=== PATIENT | female | born 1975 | race Caucasian/White ===

== ENCOUNTER 2020-11-27 09:27 | Outpatient (REF) | payer MEDICARE, MEDICAID, SELFPAY | END 2020-11-27 09:28 | disposition home or self-care (01) | LOC: HO.LAB 09:27 | PROVIDERS: Visit Provider Internal Medicine | DX: Z20.822 Contact with and (suspected) exposure to COVID-19 (principal) | CPT/HCPCS: 36415; C9803; U0003; U0005 ==

== ENCOUNTER 2021-02-10 08:22 | Outpatient (REF) | payer MEDICARE, MEDICAID, SELFPAY ==
[2021-02-10 09:20] LABS: Glucose Urine UA NEG (NEG); Leukocyte Esterase Urine TRACE (NEG); Nitrite Urine NEG (NEG); PH 7.5 (5.0-8.0); Urine Blood NEG (NEG); Urine Ketones NEG (NEG); Urine Protein NEG (NEG-TRACE)
[2021-02-10 09:21] LABS: Appearance Urine HAZY; Color Urine YELLOW
[2021-02-10 09:32] LABS: Bacteria Urine 1+ /LPF; RBC Urine 0 /HPF (0); Squamous Epithelial Cell Urine 3+ /LPF
[2021-02-10 09:47] LABS: MANUAL DIFF FLAG NO
[2021-02-10 10:03] LABS: Basophils Percent Auto 0.5 % (0-2); Eosinophils Absolute Auto 0.1 X10*3/uL (0.0-0.4); Eosinophils Percent Auto 0.7 % (0-4); Hematocrit 43.5 % (37-47); Hemoglobin 14.7 g/dl (12.0-16.0); Imm Gran Abs Auto 0.02 X10*3/uL (0.00-0.03); Imm Gran Pct Auto 0.2 % (0.0-0.4); Immature Retic Fraction 6.8 % (3.0-15.9); Lymphocytes Percent Auto 37.2 % (20-40); Mean Corpuscular HGB Conc 33.8 g/dl (31.0-35.0); Mean Corpuscular Hemoglobin 27.5 pg (27.0-33.0); Mean Corpuscular Volume 81.3 fL (80-98); Mean Platelet Volume 10.7 fL (9.4-12.3); Monocytes Absolute Auto 0.6 X10*3/uL (0.1-1.2); Monocytes Percent Auto 7.8 % (2-11); Neutrophils Absolute Auto 4.3 X10*3/uL (2.0-8.3); Neutrophils Percent Auto 53.6 % (45-73); Platelet Count 242 X10*3/uL (160-400); Red Blood Count 5.35 X10*6/uL (4.20-5.50); Red Cell Distribution Width 11.9 % (11.0-16.0); Retic HGB Equivalent 32.2 pg (30.0-35.0); Reticulocyte Percent 1.2 % (0.5-1.8); Reticulocytes Absolute 0.063 X10*6/uL (0.026-0.095); White Blood Count 8.1 X10*3/uL (4.8-10.8)
[2021-02-10 10:10] LABS: Alanine Aminotransferase 23 U/L (0-31); Albumin Level 4.6 g/dL (3.5-5.0); Alkaline Phosphatase 112 U/L (39-117); Anion Gap 14 (12-20); Aspartate Amino Transferase 26 U/L (5-31); Bilirubin Total 0.7 mg/dL (0.0-1.0); Blood Urea Nitrogen 21 mg/dL (9-16); Calcium 9.5 mg/dL (8.4-10.2); Carbon Dioxide 26 mmol/L (22-29); Chloride 101 mmol/L (96-108); Cholesterol 229 mg/dL; Estimated Glomerular Filt Rate 54; Glucose Random 61 mg/dL (60-115); HDL Cholesterol 43 mg/dL; Iron 91 mcg/dL (30-160); LDL Cholesterol Calculated 154 mg/dl; Percent Iron Saturation 19 % (15-50); Potassium 4.1 mmol/L (3.3-5.1); Sodium 137 mmol/L (135-145); Total Iron Binding Capacity 486 mcg/dL (228-428); Total Protein 7.6 g/dL (6.5-8.0); Triglycerides 164 mg/dL; Unsaturated Iron Binding 395 ug/dL
[2021-02-10 10:28] LABS: HBc Num1 0.07 S/CO (0.00-0.79); HIV AB/AG Nonreactive (Nonreactive); HIV Num 1 0.09 S/CO (0.00-0.99); Hepatitis B Core Antibody Nonreactive (Nonreactive); ~HepC Num1 0.04 S/CO (0.00-0.79); ~Hepatitis C Antibody Nonreactive (Nonreactive)
[2021-02-10 10:31] LABS: Ferritin 12 ng/mL (10-250); Free T4 (Free Thyroxine) 0.92 ng/dL (0.71-1.85); HBS Num1 0.43 mIU/mL (0-7.99); HBsAGNum1 0.38 S/CO (0.00-0.99); Hepatitis B Surface Antigen Negative (Negative); Thyroid Stimulating Hormone 1.77 uIU/mL (0.32-4.0); Vitamin D 25-OH Total 24.9 ng/mL (>30); ~Hepatitis B Surface Antibody NONREACTIVE (Nonreactive)
[2021-02-10 10:33] LABS: Syphilis Screen Nonreactive (Nonreactive)
[2021-02-10 11:03] LABS: CT PCR NOT DETECTED (Not Detect.); NG PCR NOT DETECTED (Not Detect.)
[2021-02-10 11:23] LABS: Folate 11.1 ng/mL (> or = 4.0); Vitamin B12 266 pg/mL (200-900)
== END 2021-02-10 08:23 | disposition home or self-care (01) ==
LOC: HO.LAB 08:22
PROVIDERS: PCP Internal Medicine; Visit Provider Internal Medicine
DX: E78.00 Pure hypercholesterolemia, unspecified (principal); F41.9 Anxiety disorder, unspecified; R94.5 Abnormal results of liver function studies; R30.0 Dysuria
CPT/HCPCS: 80053; 80061; 81001; 82306; 82607; 82728; 82746; 83540; 84439; 84443; 85025; 85045; 86704; 86706; 86780; 86803; 87340; 87389; 87491; 87591

== ENCOUNTER 2021-08-31 15:46 | Outpatient (REF) | payer MEDICARE, MEDICAID, SELFPAY ==
[2021-08-31 15:56] LABS: MANUAL DIFF FLAG NO
[2021-08-31 17:04] LABS: Basophils Percent Auto 0.5 % (0-2); Eosinophils Absolute Auto 0.1 X10*3/uL (0.0-0.4); Eosinophils Percent Auto 0.8 % (0-4); Hematocrit 40.8 % (37.0-47.0); Hemoglobin 13.3 g/dl (12.0-16.0); Imm Gran Abs Auto 0.04 X10*3/uL (0.00-0.03); Imm Gran Pct Auto 0.5 % (0.0-0.4); Lymphocytes Absolute Auto 2.2 X10*3/uL (1.2-4.9); Lymphocytes Percent Auto 26.4 % (20-40); Mean Corpuscular HGB Conc 32.6 g/dl (31.0-35.0); Mean Corpuscular Hemoglobin 27.1 pg (27.0-33.0); Mean Corpuscular Volume 83.1 fL (80.0-98.0); Mean Platelet Volume 10.7 fL (9.4-12.3); Monocytes Absolute Auto 0.7 X10*3/uL (0.1-1.2); Neutrophils Absolute Auto 5.3 x10*3/uL (2.0-8.3); Neutrophils Percent Auto 63.8 % (45-73); Platelet Count 249 X10*3/uL (160-400); Red Blood Count 4.91 X10*6/uL (4.20-5.50); Red Cell Distribution Width 12.1 % (11.0-16.0); Retic HGB Equivalent 30.5 pg (30.0-35.0); Reticulocyte Percent 1.7 % (0.5-1.8); Reticulocytes Absolute 0.082 X10*6/uL (0.026-0.095); White Blood Count 8.3 X10*3/uL (4.8-10.8)
[2021-08-31 17:34] LABS: Alanine Aminotransferase 54 U/L (0-31); Albumin Level 4.4 g/dL (3.5-5.0); Alkaline Phosphatase 94 U/L (39-117); Anion Gap 17 (12-20); Aspartate Amino Transferase 58 U/L (5-31); Bilirubin Total 0.6 mg/dL (0.0-1.0); Blood Urea Nitrogen 15 mg/dL (9-16); Calcium 9.6 mg/dL (8.4-10.2); Carbon Dioxide 23 mmol/L (22-29); Chloride 103 mmol/L (96-108); Cholesterol 242 mg/dL; Estimated Glomerular Filt Rate 52; Glucose Random 87 mg/dL (60-115); HDL Cholesterol 39 mg/dL; Iron 105 mcg/dL (30-160); LDL Cholesterol Calculated 154 mg/dl; Percent Iron Saturation 20 % (15-50); Potassium 4.4 mmol/L (3.3-5.1); Sodium 139 mmol/L (135-145); Total Iron Binding Capacity 516 mcg/dL (228-428); Total Protein 7.4 g/dL (6.5-8.0); Triglycerides 248 mg/dL; Unsaturated Iron Binding 411 ug/dL
[2021-08-31 17:58] LABS: Vitamin D 25-OH Total 38.9 ng/mL (>30)
[2021-08-31 18:09] LABS: Folate > 20.0 ng/mL (> or = 4.0); Vitamin B12 > 2000 pg/mL (200-900)
[2021-08-31 18:15] LABS: Ferritin 14 ng/mL (10-250)
== END 2021-08-31 15:47 | disposition home or self-care (01) ==
LOC: HO.LAB 15:46
PROVIDERS: PCP Internal Medicine; Visit Provider Internal Medicine
DX: E53.8 Deficiency of other specified B group vitamins (principal); E55.9 Vitamin D deficiency, unspecified; E78.00 Pure hypercholesterolemia, unspecified
CPT/HCPCS: 36415; 80053; 80061; 82306; 82607; 82728; 82746; 83540; 85025; 85045

== ENCOUNTER 2021-12-21 10:34 | Outpatient (REF) | payer MEDICARE, MEDICAID, SELFPAY ==
[2021-12-21 12:40] LABS: Erythrocyte Sedimentation Rate 7 MM/HR (0-20)
[2021-12-21 13:28] LABS: Rheumatoid Factor < 15.0 IU/mL (<15.0)
[2021-12-22 08:36] LABS: Lyme Abs Screen <0.90 index
[2021-12-22 17:37] LABS: IgA 234 mg/dL (47-310); IgG 816 mg/dL (600-1640); IgM 102 mg/dL (50-300)
[2021-12-22 23:12] LABS: Anti Nuclear Antibody Screen POSITIVE (NEGATIVE)
== END 2021-12-21 10:35 | disposition home or self-care (01) ==
LOC: HO.LAB 10:34
PROVIDERS: PCP Internal Medicine; Visit Provider Psychiatry & Neurology Neurology
DX: M54.9 Dorsalgia, unspecified (principal)
CPT/HCPCS: 36415; 82550; 82784; 85652; 86038; 86039; 86334; 86431; 86617; 86618

== ENCOUNTER 2022-04-08 15:58 | Outpatient (REF) | payer MEDICARE, MEDICAID, SELFPAY ==
--- NOTE | ~2022-04-08 | US_ITS ---
EXAMINATION: US SOFT TISSUE, NONVASCULAR CLINICAL INFORMATION: R22.2 - Localized swelling, mass and lump, trunk. COMPARISON: CT abdomen and pelvis noncontrast 07/25/2014. TECHNIQUE: Real-time linear imaging of the left paralumbar soft tissues is targeted to the area of patient concern. Grayscale imaging and color Doppler are performed. FINDINGS: The submitted images demonstrate curvilinear specular echo 2 cm in diameter in area of palpable concern. There is strong posterior acoustic shadowing suggesting calcified or osseous structure. There is no associated color flow. Other images submitted suggest mild edema are in the superficial soft tissues. Findings are nonspecific. Further assessment with CT or MRI would be helpful to further characterize the area of palpable concern. US/US extremity nonvascular IMPRESSION: -2 cm diameter specular echo with strong posterior shadowing near area of patient concern, possibly calcified or osseous mass. Mild edema or superficial soft tissues. -Findings are nonspecific. Suggest further assessment with CT or MR to further characterize area of palpable concern.
== END 2022-04-08 15:59 | disposition home or self-care (01) ==
LOC: HO.US 15:58
PROVIDERS: Visit Provider Internal Medicine
DX: R22.2 Localized swelling, mass and lump, trunk (principal)
CPT/HCPCS: 76882

== ENCOUNTER 2022-05-05 10:02 | Outpatient (REF) | payer MEDICARE, MEDICAID, SELFPAY ==
--- NOTE | ~2022-05-05 | CT_ITS ---
EXAMINATION: CT LUMBAR SPINE CLINICAL INFORMATION: Left posterior back/buttock's swelling, mass. COMPARISON: Soft tissue ultrasound dated 04/08/[address] abdomen/pelvis dated 07/25/2014. TECHNIQUE: Contiguous axial CT images of the lumbar spine were obtained following the intravenous administration of 100 mL Omnipaque 350 contrast. Sagittal and coronal reformats were provided and reviewed. This CT examination was performed using dose optimization techniques as appropriate, variously including the following: *Automated exposure control *Adjustment of mA and/or kV according to patient size (this includes techniques or standardized protocols for targeted exams where dose is matched to indication/reason for exam; i.e. extremities or head) *Use of iterative reconstruction technique DLP: 1284 mGy-cm FINDINGS: Normal vertebral body alignment. The lumbar lordosis is maintained. No acute fracture or subluxation. No loss of vertebral body height. Minimal loss of intervertebral disc height with endplate osteophytes at L3-L4. Prominent multilevel bilateral facet arthropathy. No concerning lytic or blastic osseous lesion. There is dorsal subcutaneous stranding superior to the posterior aspect of the iliac bones, left greater than right. On the left, there is a somewhat ovoid, heterogeneous collection within the subcutaneous tissues measuring approximately 5.1 x 4.2 x 5.3 cm (AP x ML x CC). No definite encapsulation. Findings are nonspecific and could represent an evolving soft tissue hematoma versus phlegmonous change. Mild overlying skin thickening. No soft tissue ulceration. No large, enhancing soft tissue mass. The visualized paraspinal soft tissues are otherwise unremarkable. Broad based disc bulges with thickening of the ligamentum flavum and bilateral facet arthropathy at L3-S1 causing multilevel central canal and bilateral neural foraminal stenosis. Evaluation of disc bulges and stenosis is limited on CT examination. CT/CT lumbar spine w con IMPRESSION: 1. Dorsal subcutaneous stranding superior to the iliac bones, left greater than right. Left-sided heterogeneous collection measuring approximately 5.1 x 4.2 x 5.3 cm without clear encapsulation. Findings are nonspecific and could represent an evolving soft tissue hematoma versus phlegmonous change. Mild overlying skin thickening without definite ulceration. 2. Disc bulges with bilateral facet arthropathy causing central canal and bilateral neural foraminal stenosis at L3-S1. Evaluation of disc bulges and stenosis limited on CT examination. 3. No acute fracture or subluxation.
== END 2022-05-05 10:03 | disposition home or self-care (01) ==
LOC: HO.CT 10:02
PROVIDERS: PCP Internal Medicine; Visit Provider Internal Medicine
DX: R22.2 Localized swelling, mass and lump, trunk (principal)
CPT/HCPCS: 72132

== ENCOUNTER 2022-07-08 15:55 | Outpatient (REF) | payer MEDICARE, MEDICAID, SELFPAY ==
--- NOTE | ~2022-07-08 | MM_ITS ---
EXAMINATION: MM SCREENING DIGITAL BREAST TOMOSYNTHESIS, BILATERAL CLINICAL INFORMATION: Screening. Asymptomatic. The lifetime risk of breast cancer based on the Tyrer-Cuzick Model is 12%. COMPARISON: Mammography: 03/08/2019 (baseline) TECHNIQUE: Digital breast tomosynthesis is performed in both the craniocaudal and mediolateral oblique views along with computer-aided detection (CAD). Synthesized 2D images are generated from the tomosynthesis. FINDINGS: The breasts are almost entirely fatty (ACR BI-RADS breast composition Category a). There are no significant masses, abnormal calcifications, or other abnormalities. Background stromal markings are normal. Small oval fatty nodule with central benign coarse calcification posterior upper outer right breast is stable. The axilla and skin contours are unremarkable. MM/MM tomosynthesis screening BI IMPRESSION: No mammographic evidence of malignancy. ASSESSMENT: BI-RADS 2: Benign RECOMMENDATION: Routine annual mammography screening. This patient's information was entered into a reminder system with a target due date for their next mammogram.
== END 2022-07-08 15:56 | disposition home or self-care (01) ==
LOC: HO.MAMMO 15:55
PROVIDERS: PCP Internal Medicine; Visit Provider Internal Medicine
DX: Z12.31 Encounter for screening mammogram for malignant neoplasm of breast (principal)
CPT/HCPCS: 77063; 77067

== ENCOUNTER 2023-06-01 15:56 | Outpatient (AMB) | payer MEDICARE, MEDICAID, SELFPAY ==
[2023-06-01 16:20] VITALS: BP 126/88; PULSE 92; O2SAT 97; BMI 45.4
--- NOTE | 2023-06-01 16:20 | MHC.PC.OV ---
Vital Signs 06/01/23 16:20 Height 5 ft 6 in Weight 281 lb 8.485 oz BMI 45.4 BP 126/88 Blood Pressure Location Lt brachial Position Sitting Pulse 92 Pulse Source Pulse Oximeter Pulse Oximetry (%) 97 Oxygen Delivery Method Room Air Intake Visit Reasons: lower back pain Remote Pilot Operator Required: No Accompanied by: Self / Same As Patient Allergies codeine [CODEINE] Allergy (Unknown, Verified 06/01/23 16:21) PALPITATIONS,SHAKY Medication List - Last Reconciled 06/01/23 by Sindy Beach MD albuterol sulfate 90 mcg/actuation (ProAir HFA) 2 puffs inhalation Q6H PRN alprazolam 2 mg PO TID 30 days ascorbic acid (vitamin C) 500 mg PO DAILY [BED PADS As directed] [BEDSIDE COMMODE As directed] blood sugar diagnostic (FreeStyle Lite Strips) As directed check the BS QD blood-glucose meter (FreeStyle Lite Meter kit) As directed capsaicin 0.025% (Capsicum) 1 patch topical TID PRN cholecalciferol (vitamin D3) 50 mcg PO DAILY clotrimazole 1% 1 appl topical BID 30 days cyanocobalamin (vitamin B-12) 1,000 mcg PO DAILY cyclobenzaprine 10 mg PO TID PRN 30 days duloxetine (Cymbalta) 60 mg PO DAILY 90 days ferrous sulfate 325 mg PO DAILY fluconazole (Diflucan) 150 mg PO ONCE 1 day fluconazole 150 mg PO ONCE gabapentin 600 mg PO TID [Heavy duty shower bench with BACK As directed] lancets (FreeStyle Lancets) As directed check BS QD lisinopril 5 mg PO DAILY methylprednisolone mg PO nabumetone 500 mg PO BID [PADS for her underwear As directed] prednisone 4 tabs QD x 2 days then 3 tabs QD x 2 days then 2 tabs Qd x 2 days then 1 tab QD x 2 days PO daily; tramadol 50 mg PO Q6-8H PRN 30 days triamcinolone acetonide 0.5% 1 appl topical BID 7 days [WALKER with SEAT As directed] Tobacco use date assessed: 06/01/23 Dental Screening Dental Screen Date: 06/01/23 Did you have a dental visit in the last 12 months?: Yes Did you have a dental problem in the last 6 months where you did not have access to dental care?: No Was dental information given to patient?: Patient has dentist HPI lower back pain HPI Details 47-year-old morbidly obese female with hypercholesterolemia GERD generalized anxiety disorder lumbar degenerative disc disease osteoarthritis left knee coming in for follow-up. Last seen in December 2022. Mammogram is due next month. bilateral knee pain PAin management- seen 9 months ago injection but has not helped. PAtient has seen ortho and was told nothing to do- right now. using capsaicin patches, biofreeze which is nto helping. complains of pain [facility] Medical History (Updated 06/01/23 @ 17:12 by Sindy Beach MD) Anemia Dysuria Fibromyalgia GERD (gastroesophageal reflux disease) History of kidney stones Hypercholesterolemia Obesity Vitamin D deficiency Surgical History H/O gastric bypass History of left knee surgery History of tonsillectomy Family History Father Myocardial infarction CVD (cardiovascular disease) Hypertension Mother Lung cancer Diabetes Social History (Updated 01/15/21 @ 16:21 by Tami Reynolds [facility]) Housing: Apartment Alcohol intake: current Alcohol intake frequency: a few times a month Patient Tobacco Use Status: Never used Tobacco e-Cigarette/Vaping Use: Never Used Second Hand Smoke Exposure: No Current occupational status: unemployed Cognitive needs: No Hearing needs: No Vision needs: No Questionnaire PHQ-9 Over the last 2 weeks, how often have you been bothered by any of the following problems? 1. Little interest or pleasure in doing things: several days 2. Feeling down, depressed, or hopeless: several days 3. Trouble falling or staying asleep, or sleeping too much: not at all 4. Feeling tired or having little energy: not at all 5. Poor appetite or overeating: not at all 6. Feeling bad about yourself - or that you are a failure or have let yourself or your family down: not at all 7. Trouble concentrating on things, such as reading the newspaper or watching television: not at all 8. Moving or speaking so slowly that other people could have noticed. Or the opposite - being so fidgety or restless that you have been moving around a lot more than usual: not at all 9. Thoughts that you would be better off or of hurting yourself in some way: not at all Total score: 2 Depression Screening Interpretation: Positive Source: Developed by Drs. Hamzah Schmid, Mely Lee, Silvio Marr and colleagues, with an educational abril from [employer]. Thrive Questionnaire Date Thrive assessed: 06/01/23 I am a: Patient What is your living situation today?: I have a steady place to live Within the past 12 months, did the food you bought not last and you didn't have the money to get more?: Never true Within the past 12 months, did you worry whether your food would run out before you got money to buy more?: Never true Do you have trouble paying for medicines?: No Do you have trouble getting transportation to medical appointments?: No Do you have trouble paying your heating and electricity bill?: No Do you have trouble taking care of your child, family member or friend?: No Do you have trouble with day-to-day activities such as bathing, preparing meals, shopping, managing finances, etc.?: No Are you currently unemployed and looking for a job?: No Are you interested in more education?: No Please select the resources that you would like help with: None Currently or been in a relationship where the following occur: no concerns reported AUDIT C Alcohol Use Questionnaire (AUDIT-C) 1. How often do you have a drink containing alcohol?: Monthly or less 2. How many drinks containing alcohol do you have on a typical day when you are drinking?: 1 or 2 3. How often do you have six or more drinks on one occasion?: Never Total Score: 1 KATHY-7 AMB Questionnaire KATHY-7 Date KATHY - 7 assessed: 06/01/23 Feeling nervous, anxious, or on edge: 1 = Several days Not being able to stop or control worryin = Not at all Worrying too much about different things: 0 = Not at all Trouble relaxin = Not at all Being so restless that it is hard to sit still: 0 = Not at all Becoming easily annoyed or irritable: 0 = Not at all Feeling afraid as if something awful might happen: 0 = Not at all Total KATHY-7 score (0-4 normal; 5-9 mild; 10-14 moderate; 15-21 severe): 1 Source: Developed by Drs. Hamzah Schmid, Mely Lee, Silvio Marr and colleagues, with an educational abril from [employer]. Physical exam (Primary Care) Vital Signs: Last Vital Signs Pulse 92 06/01/23 16:20 BP 126/88 06/01/23 16:20 Pulse Ox 97 06/01/23 16:20 Oxygen Delivery Method Room Air 06/01/23 16:20 BMI result Body Mass Index 45.4 Tobacco/Smoking Status: Tobacco use Status Tobacco use date assessed 06/01/23 06/01/23 16:32 Patient Tobacco Use Status Never used Tobacco 06/01/23 16:32 Tobacco use type 01/02/23 15:39 e-Cigarette/Vaping Use Never Used 06/01/23 16:32 PHQ-9: PHQ-9 Score PHQ-9: Total score 2 06/01/23 16:32 Depression Screening Interpretation: Positive Thrive Assessment: Date of Thrive Assessment Date Thrive assessed 06/01/23 06/01/23 16:32 Currently or been in a relationship where the following occur: no concerns reported Const General: alert; No acute distress Eyes Conjunctivae: conjunctivae normal Resp Auscultation: clear to auscultation bilaterally Cardio Rate: regular rate Rhythm: regular rhythm GI Inspection: Yes normal to inspection Extrem General: Yes normal to inspection and No edema Assessment and Plan Assessment & Plan (1) Hypertension: Code(s): I10 - Essential (primary) hypertension Plan: Continue with blood pressure medication. Decrease salt intake and exercise continue with lisinopril 5 mg once a day (2) Lumbar degenerative disc disease: Code(s): M51.36 - Other intervertebral disc degeneration, lumbar region Plan: Keep active noted weight loss (3) Generalized anxiety disorder: Code(s): F41.1 - Generalized anxiety disorder Plan: Continue with present medication (4) GERD (gastroesophageal reflux disease): Code(s): K21.9 - Gastro-esophageal reflux disease without esophagitis Qualifiers: Esophagitis presence: without esophagitis Qualified Code(s): K21.9 - Gastro-esophageal reflux disease without esophagitis Plan: Avoid the foods that causes that usually spicy foods, tomato products, juices, coffee, soda and foods that your sensitive to. After eating do not lie down, allow 3-4 hours before in lie down. And keep the head of bed above 30 degrees to avoid the acid from going up. (5) Obesity: Code(s): E66.9 - Obesity, unspecified Qualifiers: Obesity type: due to excess calories Obesity classification: adult class 3 (BMI >= 40) Serious obesity comorbidity presence: without serious comorbidity Body mass index: BMI 40.0-44.9 Qualified Code(s): E66.01 - Morbid (severe) obesity due to excess calories; Z68.41 - Body mass index [BMI]40.0-44.9, adult Plan: Diet and exercise continue (6) Hypercholesterolemia: Code(s): E78.00 - Pure hypercholesterolemia, unspecified Plan: Avoid fried foods, chicken skin, eggs, butter margarine, pastries and meat. Be it pork or beef they have a lot of cholesterol LDL goal of less than 130 and triglyceride of less than 150 (7) Bilateral primary osteoarthritis of knee: Code(s): M17.0 - Bilateral primary osteoarthritis of knee Orders: Orders Complete Blood Count Auto Diff Today E78.00 - Pure hypercholesterolemia, unspecified Free T4 (Free Thyroxine) Today E78.00 - Pure hypercholesterolemia, unspecified Thyroid Stimulating Hormone Today E78.00 - Pure hypercholesterolemia, unspecified Vitamin B12 and Folate Today E78.00 - Pure hypercholesterolemia, unspecified Lipid Panel Today E78.00 - Pure hypercholesterolemia, unspecified Medications: New prednisone 4 tabs QD x 2 days then 3 tabs QD x 2 days then 2 tabs Qd x 2 days then 1 tab QD x 2 days PO daily; 20 tabs 0RF J45.909 - Unspecified asthma, uncomplicated, M17.0 - Bilateral primary osteoarthritis of knee semaglutide for 4 weeks 0.25 mg (0.368 mL) subcut QWEEK 3 mL 0RF E66.01 - Morbid (severe) obesity due to excess calories, Z68.41 - Body mass index [BMI] 40.0-44.9, adult Changed From sertraline (Zoloft) 100 mg PO BID 180 tabs 1RF F41.9 - Anxiety disorder, unspecified To sertraline (Zoloft) 100 mg PO DAILY 90 days 90 tabs 1RF F41.9 - Anxiety disorder, unspecified Coding Level of Care Code Est Pt Level 4 (89086) Diagnoses Hypertension I10 Lumbar degenerative disc disease M51.36 Generalized anxiety disorder F41.1 GERD (gastroesophageal reflux disease) K21.9 Esophagitis presence: without esophagitis Obesity E66.01; Z68.41 Obesity type: due to excess calories Obesity classification: adult class 3 (BMI >= 40) Serious obesity comorbidity presence: without serious comorbidity Body mass index: BMI 40.0-44.9 Hypercholesterolemia E78.00 Bilateral primary osteoarthritis of knee M17.0
== END 2023-06-01 17:25 | disposition home or self-care (01) ==
PROVIDERS: PCP Internal Medicine; Visit Provider Internal Medicine
DX: I10 Essential (primary) hypertension (principal); K21.9 Gastro-esophageal reflux disease without esophagitis; E66.01 Morbid (severe) obesity due to excess calories; Z68.41 Body mass index [BMI] 40.0-44.9, adult; M51.36 Other intervertebral disc degeneration, lumbar region; F41.1 Generalized anxiety disorder; E78.00 Pure hypercholesterolemia, unspecified; M17.0 Bilateral primary osteoarthritis of knee
CPT/HCPCS: 99214

== ENCOUNTER 2023-07-18 14:18 | Outpatient (AMB) | payer MEDICARE, MEDICAID, SELFPAY ==
--- NOTE | 2023-07-18 14:51 | MHC.OFFVIS ---
Intake Intake Visit Reasons: Back pain Intake Note: pt here for back pain Inside Wirer Required: No Allergies codeine [CODEINE] Allergy (Unknown, Verified 06/01/23 16:21) PALPITATIONS,SHAKY PFSH Medical History (Updated 07/18/23 @ 15:10 by GILBERT Montemayor) Lumbar degenerative disc disease Dysuria GERD (gastroesophageal reflux disease) Obesity History of kidney stones Anemia Hypercholesterolemia Vitamin D deficiency Fibromyalgia Surgical History H/O gastric bypass History of left knee surgery History of tonsillectomy Family History Father Myocardial infarction CVD (cardiovascular disease) Hypertension Mother Lung cancer Diabetes Social History (Updated 01/15/21 @ 16:21 by Tami Reynolds [facility]) Housing: Apartment Alcohol intake: current Alcohol intake frequency: a few times a month Patient Tobacco Use Status: Never used Tobacco e-Cigarette/Vaping Use: Never Used Second Hand Smoke Exposure: No Current occupational status: unemployed Cognitive needs: No Hearing needs: No Vision needs: No Assessment & Plan Assessment & Plan (1) Lumbar degenerative disc disease: Code(s): M51.36 - Other intervertebral disc degeneration, lumbar region Plan Dear Dr Beach, Thank you for referring Mrs Saucedo to our office today. She is a 48-year-old female presents today for evaluation of a left-sided low back pain. She has had this now for well over a year. It began a long time ago, and at some point she had an MRI done at [facility] showing some swelling in the subcutaneous fat tissue and it was suspected it could be a hematoma. She tells me that there is a lump she can feel on her back. In terms of neurological symptoms, she does occasionally get some electricity the goes down her legs when she is doing stretching. It is hard to tell she has any claudicating symptoms because her left knee is in need of replacement and is very arthritic. She takes tramadol, patches over the skin, cyclobenzaprine, duloxetine and nabumetone. PMH: Osteoarthritis of the left knee, shortness of breath, hypertension, fibromyalgia, anxiety, vitamin B12 and vitamin-D deficiency, eczema, GERD, high cholesterol Social hx: She does not smoke Medications: Albuterol, alprazolam, vitamin-C, capsaicin topical patches, vitamin D3, cyclobenzaprine, Cymbalta, iron, fluconazole, gabapentin, lisinopril, nabumetone, Trulicity, tramadol Allergies: and codeine Physical exam: She is awake alert oriented, walks with a walker and the limb she has severe left knee pain with manipulation. Over the left sacroiliac region, I can feel a small palpable mobile lump which is soft and rubbery in nature. There are no skin changes or discolorations around this area. Overall gross motor strength is normal. Imaging review: She has a lumbar MRI done at [place] in 2021 showing the above-mentioned left-sided nonspecific edema in the fat tissue over the SI joint region. In addition to this she also has a slight spondylolisthesis at L3-4 with central canal stenosis. Impression: 48-year-old female presents for evaluation of low back pain over the soft tissue of the sacroiliac region were previous MRI has shown a nonspecific tissue edema suspicious for possible hematoma. The patient does have a small lump in this area, it is slightly tender. The MRI suggests it could be hematoma. I would find it unusual that hematoma would not have resolved at this point. I will get a new MRI to check up on this, as well as the lumbar stenosis seen on the MRI. She does have some feeling of pain and electrical sensation down her legs with stretching her back so I suspect this could be from that. We will see her back in a few weeks and review the MRI together. I will also get standing flexion-extension x-rays to check on her spondylolisthesis. Thank you for allowing us to care for your patient. The total time spent with this visit with this patient was 45 minutes reviewing history, physical exam, lumbar spine imaging review, and implementation of treatment plan or further diagnostic testing Chalo Khan MD,PhD [facility] Orders: Orders XR lumbar spine 4V min Today M51.36 - Other intervertebral disc degeneration, lumbar region MR lumbar spine wo con Today M48.062 - Spinal stenosis, lumbar region with neurogenic claudication Coding Level of Care Code New Pt Level 4 (58154) Diagnoses Lumbar degenerative disc disease M51.36
== END 2023-07-18 15:19 | disposition home or self-care (01) ==
PROVIDERS: PCP Internal Medicine; Referring Provider Internal Medicine; Visit Provider Physician Assistant
DX: M51.36 Other intervertebral disc degeneration, lumbar region (principal)
CPT/HCPCS: 99204

== ENCOUNTER 2023-07-18 14:18 | Outpatient (REF) | payer MEDICARE, MEDICAID, SELFPAY ==
--- NOTE | ~2023-07-18 | XR_ITS ---
EXAMINATION: XR LUMBOSACRAL SPINE WITH OBLIQUES CLINICAL INFORMATION: Pain in lumbar region COMPARISON: None available TECHNIQUE: AP, flexion and extension views and lateral views of the lumbar spine. Lateral view of the lumbosacral junction. FINDINGS: There is mild dextroscoliosis of lumbar spine. There is straightening of lumbar lordosis and narrowing of L3-L4, L4-L5 with grade 1 anterior listhesis of L3 over L4 and L4 over L5 there is no significant instability on flexion and extension views. Pedicles are preserved. Sacroiliac joints are maintained. Soft tissues are normal. XR/XR lumbar spine 4V min IMPRESSION: Degenerative changes with grade 1 anterolisthesis of L3 over L4 and L4 over L5.
== END 2023-07-18 14:19 | disposition home or self-care (01) ==
LOC: HO.HOSX 14:18
PROVIDERS: PCP Internal Medicine; Visit Provider Physician Assistant
DX: M51.36 Other intervertebral disc degeneration, lumbar region (principal)
CPT/HCPCS: 72110

== ENCOUNTER 2023-07-26 10:55 | Outpatient (AMB) | payer MEDICARE, MEDICAID, SELFPAY ==
--- NOTE | 2023-07-26 10:49 | MHC.PC.OV ---
Intake Visit Reasons: KATHY LBP (skin issue) Intake Note: Patient is here to follow up on skin issue (skin break out). Paper Hanger Required: No Housetrailer Servicer: Not Required per policy Accompanied by: Self / Same As Patient Allergies codeine [CODEINE] Allergy (Unknown, Verified 06/01/23 16:21) PALPITATIONS,SHAKY Tobacco use date assessed: 06/01/23 HPI KATHY LBP (skin issue) HPI Details 48-year-old morbidly obese female with generalized anxiety disorder hypertension GERD hypercholesterolemia last seen in May 2023. Patient is due for colonoscopy, mammogram. Patient has low back pain and has been referred to the neurosurgeon diagnosis of lumbar degenerative disc problem of the mass on the lower back had an MRI in 2021 showing left-sided nonspecific edema in the fat tissue over the SI joint in addition has spondylolisthesis L3-4 with central canal stenosis patient has been advised to get. Patient also has a note from the [facility] pain management October 2022 diagnosis of fibromyalgia and neuritis post genicular RFA pain. Patient is asking more med and long discussion on no more increase needed . complains of rash chest, arm, face, legs having discharge whitish PFSH Medical History (Updated 07/18/23 @ 15:10 by GILBERT Montemayor) Lumbar degenerative disc disease Dysuria GERD (gastroesophageal reflux disease) Obesity History of kidney stones Anemia Hypercholesterolemia Vitamin D deficiency Fibromyalgia Surgical History H/O gastric bypass History of left knee surgery History of tonsillectomy Family History Father Myocardial infarction CVD (cardiovascular disease) Hypertension Mother Lung cancer Diabetes Social History (Updated 01/15/21 @ 16:21 by Tami Reynolds CMA) Housing: Apartment Alcohol intake: current Alcohol intake frequency: a few times a month Patient Tobacco Use Status: Never used Tobacco e-Cigarette/Vaping Use: Never Used Second Hand Smoke Exposure: No Current occupational status: unemployed Cognitive needs: No Hearing needs: No Vision needs: No Questionnaire Thrive Questionnaire Date Thrive assessed: 06/01/23 KATHY-7 AMB Questionnaire KATHY-7 Date KATHY - 7 assessed: 06/01/23 Source: Developed by Drs. Hamzah Schmid, Mely Lee, Silvio Marr and colleagues, with an educational abril from [employer]. Physical exam (Primary Care) Tobacco/Smoking Status: Tobacco use Status Tobacco use date assessed 06/01/23 07/26/23 10:54 Patient Tobacco Use Status Never used Tobacco 07/26/23 10:54 Tobacco use type 01/02/23 15:39 e-Cigarette/Vaping Use Never Used 07/26/23 10:54 Thrive Assessment: Date of Thrive Assessment Date Thrive assessed 06/01/23 07/26/23 10:54 Telehealth Telehealth Location of provider rendering services: practice address Location of patient: address on file Patient Identification confirmed using: Name, : Yes Telehealth method: video Patient verbally consented to treatment: Yes Patient verbally consented to billing insurance company: Yes Patient informed of any privacy concerns related to visit: Yes Minutes spent on Phone/Video with Pt.: 25 Assessment and Plan Assessment & Plan (1) Obesity: Code(s): E66.9 - Obesity, unspecified Qualifiers: Body mass index: BMI 40.0-44.9 Obesity classification: adult class 3 (BMI >= 40) Obesity type: due to excess calories Serious obesity comorbidity presence: without serious comorbidity Qualified Code(s): E66.01 - Morbid (severe) obesity due to excess calories; Z68.41 - Body mass index [BMI]40.0-44.9, adult (2) Lumbar degenerative disc disease: Code(s): M51.36 - Other intervertebral disc degeneration, lumbar region Plan: MRI pending (3) Bilateral primary osteoarthritis of knee: Code(s): M17.0 - Bilateral primary osteoarthritis of knee Plan: do the best to loose weight (4) Eczema: Code(s): L30.9 - Dermatitis, unspecified Orders: Referrals Dermatology Referral L30.9 - Dermatitis, unspecified Medications: Refilled cyclobenzaprine 10 mg PO TID PRN 90 tabs 0RF muscle spasm 30 days G89.29 - Other chronic pain, M54.50 - Low back pain, unspecified Coding Level of Care Code Tele Est Pt Level 4 (75518) Diagnoses Class 3 severe obesity due to excess calories without serious comorbidity with body mass index (BMI) of 40.0 to 44.9 in adult E66.01; Z68.41 Body mass index: BMI 40.0-44.9 Obesity classification: adult class 3 (BMI >= 40) Obesity type: due to excess calories Serious obesity comorbidity presence: without serious comorbidity Lumbar degenerative disc disease M51.36 Bilateral primary osteoarthritis of knee M17.0 Eczema L30.9
== END 2023-07-26 12:33 | disposition home or self-care (01) ==
LOC: HO.HMGH 10:55
PROVIDERS: PCP Internal Medicine; Visit Provider Internal Medicine
DX: M51.36 Other intervertebral disc degeneration, lumbar region (principal); E66.01 Morbid (severe) obesity due to excess calories; Z68.41 Body mass index [BMI] 40.0-44.9, adult; M17.0 Bilateral primary osteoarthritis of knee; L30.9 Dermatitis, unspecified
CPT/HCPCS: 99214

== ENCOUNTER 2023-08-25 08:36 | Outpatient (AMB) | payer MEDICARE, MEDICAID, SELFPAY ==
--- NOTE | 2023-08-25 09:16 | MHC.OFFWIV ---
Intake Vital Signs 08/25/23 09:17 Height 5 ft 6 in Weight 126.779 kg BMI 45.1 BP 140/82 H Blood Pressure Location Lt brachial Position Sitting Pulse 99 Pulse Source Pulse Oximeter Temp 97.8 F Temp Source Temporal Artery Scan Pulse Oximetry (%) 96 Intake Visit Reasons: EST/pore infection on torso,arms&breast(lobby) Intake Note: pt is here for c/o rash all over arms, torso, breast Patient Tobacco Use Status: Never used Tobacco Allergies codeine [CODEINE] Allergy (Unknown, Verified 08/25/23 09:23) PALPITATIONS,SHAKY Do you need a note to return to daycare/school/sports/work: Yes HPI HPI Comments History of Present Illness Details 1000 48 year old female presents with rash to torso, upper extremities, face, rash started about a week and half ago, not improving despite clotrimazole/betamethasone cream. Patient is unsure exactly white is causing this rash, however it is worse in her breast region. Denies new laundry detergent, lotion, creams, pefumes, new meds. Reports it was slightly itchy not anymore PE - w/ maculopaular rash to torso, b/l breast, back and b/l UE. Concerns for contact dermatitis, allergic dermatitis versus folliculitis. Unlikely fungal rash. Unlikely necrotizing infection, SJS, ten ( no mucus membrane involvment) Plan- predisone high dose X 5 days and pcp follow up may benefit from derm referal. [facility] Medical History Lumbar degenerative disc disease Dysuria GERD (gastroesophageal reflux disease) Obesity History of kidney stones Anemia Hypercholesterolemia Vitamin D deficiency Fibromyalgia Surgical History H/O gastric bypass History of left knee surgery History of tonsillectomy Family History Father Myocardial infarction CVD (cardiovascular disease) Hypertension Mother Lung cancer Diabetes Social History Housing: Apartment Alcohol intake: current Alcohol intake frequency: a few times a month Patient Tobacco Use Status: Never used Tobacco e-Cigarette/Vaping Use: Never Used Second Hand Smoke Exposure: No Current occupational status: unemployed Cognitive needs: No Hearing needs: No Vision needs: No Review of Systems Const Details: Constitutional : No Weight loss, No Fever, No Chills, No Fatigue, No Malaise ENT/Mouth : No sore throat, No Rhinorrhea Eyes: No Eye Pain, No Swelling, No Redness Cardiovascular : No Chest Pain, No SOB, No Dyspnea on Exertion, No Orthopnea, No Edema, No Palpitations Respiratory : No Cough, No Sputum, No Wheezing Gastrointestinal : No Nausea, No Vomiting, No Diarrhea, No Constipation, No abdominal Pain, No Hematochezia, No Melena Genitourinary : No Dysuria, No Urinary Frequency, No Hematuria, Musculoskeletal : No joint pain, No Myalgias, No Joint Swelling Skin : No Skin Lesions, + rash Neuro : No Weakness, No Numbness, No Dizziness, No Headache Psych : No Anxiety/Panic, No Depression All other systems reviewed and are negative All systems reviewed & are unremarkable except as noted in HPI and below Physical Exam Vital Signs: Last Vital Signs Temp 97.8 F 08/25/23 09:17 Pulse 99 08/25/23 09:17 BP 140/82 H 08/25/23 09:17 Pulse Ox 96 08/25/23 09:17 BMI result Body Mass Index 45.1 vss Appearance: Alert.? Oriented X3.? No acute distress.? Head: Normocephalic, atraumatic, no step-offs or deformities Eyes: Pupils equal, round and reactive to light.? CVS: Normal heart rate and rhythm.? Pulses normal.? Respiratory: No respiratory distress.? Breath sounds normal.? Abdomen: Soft and nontender.? Skin: Skin warm and dry.? Normal skin color.? Normal skin turgor.?+ w/ maculopaular rash to torso, b/l breast, back and b/l UE. Extremities: No lower extremity edema.? No calf ttp. 5/5 strength to bilateral upper and lower extremities Back: No midline tenderness, no C-spine tenderness, full range of motion, no CVA tenderness bilaterally Neuro: Oriented X 3.? No motor deficit.? No sensory deficit. CN 2-12 intact Assessment & Plan Assessment & Plan (1) Contact dermatitis: Code(s): L25.9 - Unspecified contact dermatitis, unspecified cause Plan Take your medications as prescribed. If you were prescribed antibiotics today, it is important that you take your medication to their entirety, do not skip any doses, do not finish them early. Follow-up with your primary care provider this week. Return to the emergency department with new or worsening symptoms. Such as fevers, chills, chest pain, shortness of breath, nausea, vomiting, dizziness, headache, vision changes, lethargy In case of emergency call 911 Medications: New prednisone 60 mg (3 x 20 mg) PO DAILY 5 days 15 tabs 0RF hydrocortisone 1% (Anti-Itch (hydrocortisone)) 1 appl topical TID PRN 120 mL 0RF skin irritation Coding Level of Care Code Est Pt Level 3 (95077) Diagnoses Contact dermatitis L25.9
[2023-08-25 09:17] VITALS: BP 140/82; PULSE 99; TEMP 36.6; O2SAT 96; BMI 45.1
== END 2023-08-25 10:16 | disposition home or self-care (01) ==
PROVIDERS: PCP Internal Medicine; Visit Provider Physician Assistant
DX: L25.9 Unspecified contact dermatitis, unspecified cause (principal)
CPT/HCPCS: 99213

== ENCOUNTER 2023-09-12 08:45 | Outpatient (AMB) | payer MEDICARE, MEDICAID, SELFPAY ==
--- NOTE | 2023-09-12 09:20 | MHC.OFFWIV ---
Intake Vital Signs 09/12/23 09:21 Height 5 ft 6 in Weight 276 lb BMI 44.5 BP 130/82 Blood Pressure Location Rt brachial Position Sitting Pulse 114 H Pulse Source Pulse Oximeter Temp 97.8 F Temp Source Temporal Artery Scan Pulse Oximetry (%) 98 Oxygen Delivery Method Room Air Intake Visit Reasons: EST/skin rash all over body [phone] Intake Note: pt is here for c/o skin rash all over body, was treated with prednisone but did not help Patient Tobacco Use Status: Never used Tobacco Allergies codeine [CODEINE] Allergy (Unknown, Verified 09/17/23 15:06) PALPITATIONS,SHAKY Medication List - Last Reconciled 09/17/23 by Noe Vallejo MD albuterol sulfate 90 mcg/actuation (ProAir HFA) 2 puffs inhalation Q6H PRN alprazolam 2 mg PO TID 30 days ascorbic acid (vitamin C) 500 mg PO DAILY [BED PADS As directed] [BEDSIDE COMMODE As directed] blood sugar diagnostic (FreeStyle Lite Strips) As directed check the BS QD blood-glucose meter (FreeStyle Lite Meter kit) As directed capsaicin 0.025% (Capsicum) 1 patch topical TID PRN cephalexin 500 mg PO BID cholecalciferol (vitamin D3) 50 mcg PO DAILY clotrimazole-betamethasone 1-0.05 % 1 appl topical BID 2 weeks cyanocobalamin (vitamin B-12) 1,000 mcg PO DAILY cyclobenzaprine 10 mg PO TID PRN 30 days duloxetine (Cymbalta) 60 mg PO DAILY 90 days ferrous sulfate 325 mg PO DAILY gabapentin 600 mg PO TID [Heavy duty shower bench with BACK As directed] hydrocortisone 1% (Anti-Itch (hydrocortisone)) 1 appl topical TID PRN lancets (FreeStyle Lancets) As directed check BS QD lisinopril 5 mg PO DAILY nabumetone 500 mg PO BID [PADS for her underwear As directed] prednisone 10 mg PO DAILY sertraline (Zoloft) 100 mg PO DAILY 90 days tramadol 50 mg PO Q6-8H PRN 30 days triamcinolone acetonide 0.5% 1 appl topical BID 7 days [WALKER with SEAT As directed] HPI EST/skin rash all over body [phone] HPI Details 48-year-old presents to the office for a sick visit. She was seen last week for a rash. Patient was given prednisone and her symptoms did not fade away completely. Sx of itchiness recurred after she completed her prednisone prescription. [facility] Medical History Lumbar degenerative disc disease Dysuria GERD (gastroesophageal reflux disease) Obesity History of kidney stones Anemia Hypercholesterolemia Vitamin D deficiency Fibromyalgia Surgical History H/O gastric bypass History of left knee surgery History of tonsillectomy Family History Father Myocardial infarction CVD (cardiovascular disease) Hypertension Mother Lung cancer Diabetes Housing: Apartment Alcohol intake: current Alcohol intake frequency: a few times a month Patient Tobacco Use Status: Never used Tobacco e-Cigarette/Vaping Use: Never Used Second Hand Smoke Exposure: No Current occupational status: unemployed Cognitive needs: No Hearing needs: No Vision needs: No Physical Exam Vital Signs: Last Vital Signs Temp 97.8 F 09/12/23 09:21 Pulse 114 H 09/12/23 09:21 BP 130/82 09/12/23 09:21 Pulse Ox 98 09/12/23 09:21 Oxygen Delivery Method Room Air 09/12/23 09:21 BMI result Body Mass Index 44.5 Skin Other: Scattered, erythematous rash over the right and left forearm and over the abdomen. A few weeping lesions noted Assessment & Plan Assessment & Plan (1) Rash: Code(s): R21 - Rash and other nonspecific skin eruption Plan: Prednisone with a longer taper. Abx to treat super infection. If sx do not improve to follow up here. Medications: New cephalexin 500 mg PO BID 14 caps 0RF prednisone 6 pills by mouth day 1, 6 pills by mouth day 2, 5 pills by mouth day 3, 4 pills by mouth day 4, 3 pills by mouth day 5, 2 pills by mouth day 6, 1 pill by mouth day 7 and 1 pill by mouth day 8. 10 mg PO DAILY 28 tabs 0RF Coding Level of Care Code Est Pt Level 3 (00262) Diagnoses Rash R21
[2023-09-12 09:21] VITALS: BP 130/82; PULSE 114; TEMP 36.6; O2SAT 98; BMI 44.5
== END 2023-09-12 09:57 | disposition home or self-care (01) ==
PROVIDERS: PCP Internal Medicine; Visit Provider Internal Medicine
DX: R21 Rash and other nonspecific skin eruption (principal)
CPT/HCPCS: 99213

== ENCOUNTER 2023-09-18 08:47 | Outpatient (AMB) | payer MEDICARE, MEDICAID, SELFPAY ==
--- NOTE | 2023-09-18 10:02 | AM.OFFWIN_ITS ---
Intake Vital Signs 09/18/23 10:03 Height 5 ft 6 in Weight 277 lb BMI 44.7 BP 130/80 Blood Pressure Location Rt brachial Position Sitting Pulse 87 Pulse Source Pulse Oximeter Temp 97.9 F Temp Source Temporal Artery Scan Pulse Oximetry (%) 98 Intake Visit Reasons: EP Skin condition Intake Note: pt is here for c/o skin condition Patient Tobacco Use Status: Never used Tobacco Allergies codeine [CODEINE] Allergy (Unknown, Verified 09/18/23 10:45) PALPITATIONS,SHAKY Medication List - Last Reconciled 09/18/23 by Noe Vallejo MD albuterol sulfate 90 mcg/actuation (ProAir HFA) 2 puffs inhalation Q6H PRN alprazolam 2 mg PO TID 30 days ascorbic acid (vitamin C) 500 mg PO DAILY [BED PADS As directed] [BEDSIDE COMMODE As directed] blood sugar diagnostic (FreeStyle Lite Strips) As directed check the BS QD blood-glucose meter (FreeStyle Lite Meter kit) As directed capsaicin 0.025% (Capsicum) 1 patch topical TID PRN cephalexin 500 mg PO BID cholecalciferol (vitamin D3) 50 mcg PO DAILY clotrimazole-betamethasone 1-0.05 % 1 appl topical BID 2 weeks cyanocobalamin (vitamin B-12) 1,000 mcg PO DAILY cyclobenzaprine 10 mg PO TID PRN 30 days duloxetine (Cymbalta) 60 mg PO DAILY 90 days ferrous sulfate 325 mg PO DAILY gabapentin 600 mg PO TID [Heavy duty shower bench with BACK As directed] hydrocortisone 1% (Anti-Itch (hydrocortisone)) 1 appl topical TID PRN lancets (FreeStyle Lancets) As directed check BS QD lisinopril 5 mg PO DAILY nabumetone 500 mg PO BID [PADS for her underwear As directed] prednisone 10 mg PO DAILY sertraline (Zoloft) 100 mg PO DAILY 90 days tramadol 50 mg PO Q6-8H PRN 30 days triamcinolone acetonide 0.5% 1 appl topical BID 7 days [WALKER with SEAT As directed] Do you need a note to return to daycare/school/sports/work: Yes HPI EP Skin condition HPI Details 48-year-old female presents to the offic e for a follow-up visit. Patient was seen last week for a rash and given a tapering dose of prednisone and antibiotics. Rash symptoms are still present however no new lesions formed. Itching symptoms have subsided. She continues to report tingling sensation in the affected area. [facility] Medical History Lumbar degenerative disc disease Dysuria GERD (gastroesophageal reflux disease) Obesity History of kidney stones Anemia Hypercholesterolemia Vitamin D deficiency Fibromyalgia Surgical History H/O gastric bypass History of left knee surgery History of tonsillectomy Family History Father Myocardial infarction CVD (cardiovascular disease) Hypertension Mother Lung cancer Diabetes Housing: Apartment Alcohol intake: current Alcohol intake frequency: a few times a month Patient Tobacco Use Status: Never used Tobacco e-Cigarette/Vaping Use: Never Used Second Hand Smoke Exposure: No Current occupational status: unemployed Cognitive needs: No Hearing needs: No Vision needs: No Physical Exam Vital Signs: Last Vital Signs Temp 97.9 F 09/18/23 10:03 Pulse 87 09/18/23 10:03 BP 130/80 09/18/23 10:03 Pulse Ox 98 09/18/23 10:03 BMI result Body Mass Index 44.7 Skin Other: Fading erythematous lesions on the right arm, breast and forehead. No new lesions. No vesicles or pustules. Assessment & Plan Assessment & Plan (1) Rash: Code(s): R21 - Rash and other nonspecific skin eruption Plan: Tapering dose of prednisone. Complete the antibiotic course. I have called the referral department to see if she can get an earlier dermatology appointment. Medications: Refilled prednisone 6 pills by mouth day 1, 6 pills by mouth day 2, 5 pills by mouth day 3, 4 pills by mouth day 4, 3 pills by mouth day 5, 2 pills by mouth day 6, 1 pill by mouth day 7 and 1 pill by mouth day 8. 10 mg PO DAILY 28 tabs 0RF Coding Level of Care Code Est Pt Level 3 (39676) Diagnoses Rash R21
[2023-09-18 10:03] VITALS: BP 130/80; PULSE 87; TEMP 36.6; O2SAT 98; BMI 44.7
== END 2023-09-18 11:04 | disposition home or self-care (01) ==
PROVIDERS: PCP Internal Medicine; Visit Provider Internal Medicine
DX: R21 Rash and other nonspecific skin eruption (principal)
CPT/HCPCS: 99213

== ENCOUNTER 2023-09-26 09:39 | Outpatient (AMB) | payer MEDICARE, MEDICAID, SELFPAY ==
[2023-09-26 10:32] VITALS: BP 128/80; PULSE 77; TEMP 36.6; O2SAT 100; BMI 44.7
--- NOTE | 2023-09-26 10:32 | MHC.OFFWIV ---
Intake Vital Signs 09/26/23 10:32 Height 5 ft 6 in Weight 277 lb BMI 44.7 BP 128/80 Blood Pressure Location Rt brachial Position Sitting Pulse 77 Pulse Source Pulse Oximeter Temp 97.8 F Temp Source Temporal Artery Scan Pulse Oximetry (%) 100 Oxygen Delivery Method Room Air Intake Visit Reasons: EP, rash all over body Intake Note: pt is here for again for c/o rash, not getting better Patient Tobacco Use Status: Never used Tobacco Allergies codeine [CODEINE] Allergy (Unknown, Verified 09/26/23 10:32) PALPITATIONS,SHAKY Do you need a note to return to daycare/school/sports/work: Yes HPI HPI Comments History of Present Illness Details Patient is a 48-year-old female in today for a sick visit. This patient has been to the walk-in clinic 3 times over the past month for same issue, which include a maculopapular rash on bilateral forearms, bilateral breasts, neck, and abdomen. Patient does not know would initially start this rash. She has been given tapering dose prednisone which she states she did not take properly, as she was only taking 1 tablet per day. At most recent visit the patient was given a course of Keflex. She states that the rash started to get better and her symptoms started to improve including itchiness, however when she finished the medication the rash reappeared. Denies recent fever, nausea, vomiting, diarrhea, chest pain, or shortness of breath. [facility] Medical History Lumbar degenerative disc disease Dysuria GERD (gastroesophageal reflux disease) Obesity History of kidney stones Anemia Hypercholesterolemia Vitamin D deficiency Fibromyalgia Surgical History H/O gastric bypass History of left knee surgery History of tonsillectomy Family History Father Myocardial infarction CVD (cardiovascular disease) Hypertension Mother Lung cancer Diabetes Social History Housing: Apartment Alcohol intake: current Alcohol intake frequency: a few times a month Patient Tobacco Use Status: Never used Tobacco e-Cigarette/Vaping Use: Never Used Second Hand Smoke Exposure: No Current occupational status: unemployed Cognitive needs: No Hearing needs: No Vision needs: No Review of Systems Const Details: Constitutional : No Weight loss, No Fever, No Chills, No Fatigue, No Malaise ENT/Mouth : No sore throat, No Rhinorrhea Eyes: No Eye Pain, No Swelling, No Redness Cardiovascular : No Chest Pain, No SOB, No Dyspnea on Exertion, No Orthopnea, No Edema, No Palpitations Respiratory : No Cough, No Sputum, No Wheezing Gastrointestinal : No Nausea, No Vomiting, No Diarrhea, No Constipation, No abdominal Pain, Skin : Admits pinpoint, scabbing dunen, rash, over forearms, neck, scalp, breast. Neuro : No Weakness, No Numbness, No Dizziness, No Headache All other systems reviewed and are negative Physical Exam Vital Signs: Last Vital Signs Temp 97.8 F 09/26/23 10:32 Pulse 77 09/26/23 10:32 BP 128/80 09/26/23 10:32 Pulse Ox 100 09/26/23 10:32 Oxygen Delivery Method Room Air 09/26/23 10:32 BMI result Body Mass Index 44.7 Patient's vital signs reviewed and stable Const Other: Appearance: Alert.? Oriented X3.? No acute distress.? Head: Normocephalic ENT: Pharynx normal.? CVS: Normal heart rate and rhythm.? Pulses normal.? Respiratory: No respiratory distress.? Breath sounds normal.? Skin: Maculo-papular rash on bilateral forearms, breasts, neck, scalp. No drainage. Some scabbing present on some of the papules. Neuro: Oriented X 3.? No motor deficit.? No sensory deficit. CN 2-12 intact Results Reviewed Results Reviewed: Will call patient with lab results Assessment & Plan Assessment & Plan (1) Rash: Code(s): R21 - Rash and other nonspecific skin eruption Plan: Will have patient draw CMP, CBC, ESR, and CRP. Will start patient on course of Keflex and doxycycline to be taken its entirety. Patient has no rash on the palm of her hands or face, or throat. Rash unlikely to pose threat to airway. Patient has been instructed on how to properly take the medication. She has been educated on common side effects. She has been educated when to return to the walk-in clinic and when to present to the emergency room. Patient is agreeable to this plan. Plan Will have patient draw CMP, CBC, ESR, and CRP. Will start patient on course of Keflex and doxycycline to be taken its entirety. Patient has no rash on the palm of her hands or face, or throat. Rash unlikely to pose threat to airway. Patient has been instructed on how to properly take the medication. She has been educated on common side effects. She has been educated when to return to the walk-in clinic and when to present to the emergency room. Patient is agreeable to this plan. Orders: Orders Complete Blood Count Auto Diff Today R21 - Rash and other nonspecific skin eruption Erythrocyte Sedimentation Rate Today R21 - Rash and other nonspecific skin eruption Comprehensive Met. Panel Today R21 - Rash and other nonspecific skin eruption C Reactive Protein Today R21 - Rash and other nonspecific skin eruption Medications: New doxycycline hyclate 100 mg PO BID 20 tabs 0RF cephalexin 500 mg PO QID 28 caps 0RF Coding Level of Care Code Est Pt Level 3 (63174) Diagnoses Rash R21 Time Spent (min) 25
== END 2023-09-26 11:23 | disposition home or self-care (01) ==
PROVIDERS: PCP Internal Medicine; Visit Provider Nurse Practitioner Primary Care
DX: R21 Rash and other nonspecific skin eruption (principal)
CPT/HCPCS: 99213

== ENCOUNTER 2023-09-26 11:00 | Outpatient (REF) | payer MEDICARE, MEDICAID, SELFPAY ==
[2023-09-26 13:17] LABS: MANUAL DIFF FLAG NO
[2023-09-26 13:31] LABS: Basophils Percent Auto 0.5 % (0-2); Eosinophils Absolute Auto 0.1 X10*3/uL (0.0-0.4); Eosinophils Percent Auto 1.5 % (0-4); Hematocrit 33.8 % (37.0-47.0); Hemoglobin 9.5 g/dl (12.0-16.0); Imm Gran Abs Auto 0.04 X10*3/uL (0.00-0.03); Imm Gran Pct Auto 0.5 % (0.0-0.4); Lymphocytes Absolute Auto 2.1 X10*3/uL (1.2-4.9); Lymphocytes Percent Auto 25.3 % (20-40); Mean Corpuscular HGB Conc 28.1 g/dl (31.0-35.0); Mean Corpuscular Hemoglobin 19.3 pg (27.0-33.0); Mean Corpuscular Volume 68.6 fL (80.0-98.0); Monocytes Absolute Auto 0.4 X10*3/uL (0.1-1.2); Monocytes Percent Auto 5.3 % (2-11); Neutrophils Absolute Auto 5.5 x10*3/uL (2.0-8.3); Neutrophils Percent Auto 66.9 % (45-73); Platelet Count 308 X10*3/uL (160-400); Red Blood Count 4.93 X10*6/uL (4.20-5.50); Red Cell Distribution Width 16.3 % (11.0-16.0); White Blood Count 8.2 X10*3/uL (4.8-10.8)
[2023-09-26 14:00] LABS: Alanine Aminotransferase 22 U/L (0-31); Albumin Level 4.1 g/dL (3.5-5.0); Alkaline Phosphatase 108 U/L (39-117); Anion Gap 13 (12-20); Aspartate Amino Transferase 25 U/L (5-31); Bilirubin Total 0.5 mg/dL (0.0-1.0); Blood Urea Nitrogen 14 mg/dL (9-16); C Reactive Protein 0.94 mg/dL (< or = 0.50); Calcium 9.5 mg/dL (8.4-10.2); Carbon Dioxide 27 mmol/L (22-29); Chloride 104 mmol/L (96-108); Estimated Glomerular Filt Rate > 60; Glucose Random 75 mg/dL (60-115); Potassium 3.6 mmol/L (3.3-5.1); Sodium 140 mmol/L (135-145); Total Protein 7.1 g/dL (6.5-8.0)
[2023-09-26 14:14] LABS: Erythrocyte Sedimentation Rate 9 MM/HR (0-20)
== END 2023-09-26 11:01 | disposition home or self-care (01) ==
LOC: HO.HMGCLDS 11:00
PROVIDERS: PCP Internal Medicine; Visit Provider Nurse Practitioner Primary Care
DX: R21 Rash and other nonspecific skin eruption (principal)
CPT/HCPCS: 36415; 80053; 85025; 85652; 86140

== ENCOUNTER 2024-01-03 13:35 | Outpatient (AMB) | payer MEDICARE, MEDICAID, SELFPAY ==
--- NOTE | 2024-01-03 13:35 | MHC.PC.OV ---
Intake Visit Reasons: Med Review Follow Up/[id number] Allergies codeine [CODEINE] Allergy (Unknown, Verified 01/03/24 13:36) PALPITATIONS,SHAKY Tobacco use date assessed: 01/03/24 Dental Screening Dental Screen Date: 01/03/24 Did you have a dental visit in the last 12 months?: No Did you have a dental problem in the last 6 months where you did not have access to dental care?: No Was dental information given to patient?: No HPI Med Review Follow Up/[id number] HPI Details 48-year-old morbidly obese female with hypercholesterolemia GERD generalized anxiety disorder chronic low back pain hypertension coming in for follow-up through Telehealth. Last seen in July 2023. Patient's colonoscopy was last done in April 2016 mammogram is due.rash - has been seeing dermatology. lichen planus, biopsy done -patient continues to follow-up with dermatology. Meanwhile as far as anxiety and depression was talking to a counselor before but discussed that she disappeared. Will try to inquire on this discussed about colon cancer screening breast cancer screening and cervical cancer screening. Referral done discussed about getting blood work done for the elevated cholesterol and sugar. [facility] Medical History Lumbar degenerative disc disease Dysuria GERD (gastroesophageal reflux disease) Obesity History of kidney stones Anemia Hypercholesterolemia Vitamin D deficiency Fibromyalgia Surgical History H/O gastric bypass History of left knee surgery History of tonsillectomy Family History (Updated 01/03/24 @ 13:37 by Tami Reynolds [facility]) Father Myocardial infarction CVD (cardiovascular disease) Hypertension Mother Lung cancer Diabetes Social History Housing: Apartment Alcohol intake: current Alcohol intake frequency: a few times a month Patient Tobacco Use Status: Never used Tobacco e-Cigarette/Vaping Use: Never Used Second Hand Smoke Exposure: No Current occupational status: unemployed Cognitive needs: No Hearing needs: No Vision needs: No Questionnaire PHQ-9 Over the last 2 weeks, how often have you been bothered by any of the following problems? 1. Little interest or pleasure in doing things: several days 2. Feeling down, depressed, or hopeless: several days 3. Trouble falling or staying asleep, or sleeping too much: not at all 4. Feeling tired or having little energy: not at all 5. Poor appetite or overeating: not at all 6. Feeling bad about yourself - or that you are a failure or have let yourself or your family down: not at all 7. Trouble concentrating on things, such as reading the newspaper or watching television: not at all 8. Moving or speaking so slowly that other people could have noticed. Or the opposite - being so fidgety or restless that you have been moving around a lot more than usual: not at all 9. Thoughts that you would be better off or of hurting yourself in some way: not at all Total score: 2 Depression Screening Interpretation: Positive Depression Screening Done: Yes Source: Developed by Drs. Hamzah Schmid, Mely Lee, Silvio Marr and colleagues, with an educational abril from [employer]. Thrive Questionnaire Date Thrive assessed: 01/03/24 I am a: Patient What is your living situation today?: I have a steady place to live Within the past 12 months, did the food you bought not last and you didn't have the money to get more?: Never true Within the past 12 months, did you worry whether your food would run out before you got money to buy more?: Never true Do you have trouble paying for medicines?: No Do you have trouble getting transportation to medical appointments?: No Do you have trouble paying your heating and electricity bill?: No Do you have trouble taking care of your child, family member or friend?: No Do you have trouble with day-to-day activities such as bathing, preparing meals, shopping, managing finances, etc.?: No Are you currently unemployed and looking for a job?: No Are you interested in more education?: No Currently or been in a relationship where the following occur: no concerns reported THRIVE Score: 0 AUDIT C Alcohol Use Questionnaire (AUDIT-C) 1. How often do you have a drink containing alcohol?: Monthly or less 2. How many drinks containing alcohol do you have on a typical day when you are drinking?: 1 or 2 3. How often do you have six or more drinks on one occasion?: Never Total Score: 1 KATHY-7 AMB Questionnaire KATHY-7 Date KATHY - 7 assessed: 01/03/24 Feeling nervous, anxious, or on edge: 1 = Several days Not being able to stop or control worryin = Not at all Worrying too much about different things: 0 = Not at all Trouble relaxin = Not at all Being so restless that it is hard to sit still: 0 = Not at all Becoming easily annoyed or irritable: 1 = Several days Feeling afraid as if something awful might happen: 0 = Not at all Total KATHY-7 score (0-4 normal; 5-9 mild; 10-14 moderate; 15-21 severe): 2 Source: Developed by Drs. Hamzah Schmid, Mely Lee, Silvio Marr and colleagues, with an educational abril from [employer]. Physical exam (Primary Care) Tobacco/Smoking Status: Tobacco use Status Tobacco use date assessed 01/03/24 01/03/24 13:38 Patient Tobacco Use Status Never used Tobacco 01/03/24 13:38 Tobacco use type 09/12/23 08:43 e-Cigarette/Vaping Use Never Used 01/03/24 13:38 PHQ-9: PHQ-9 Score PHQ-9: Total score 2 01/03/24 13:38 Depression Screening Interpretation: Positive Thrive Assessment: Date of Thrive Assessment Date Thrive assessed 01/03/24 01/03/24 13:38 Currently or been in a relationship where the following occur: no concerns reported Telehealth Telehealth Location of provider rendering services: practice address Location of patient: address on file Patient Identification confirmed using: Name, : Yes Telehealth method: video (Android) Patient verbally consented to treatment: Yes Patient verbally consented to billing insurance company: Yes Patient informed of any privacy concerns related to visit: Yes Minutes spent on Phone/Video with Pt.: 25 Assessment and Plan Assessment & Plan (1) Hypercholesterolemia: Code(s): E78.00 - Pure hypercholesterolemia, unspecified Plan: Patient is reminded to have blood work done. Avoid fried foods, chicken skin, eggs, butter margarine, pastries and meat. Be it pork or beef they have a lot of cholesterol (2) Obesity: Code(s): E66.9 - Obesity, unspecified Qualifiers: Obesity type: due to excess calories Obesity classification: adult class 3 (BMI >= 40) Serious obesity comorbidity presence: without serious comorbidity Body mass index: BMI 40.0-44.9 Qualified Code(s): E66.01 - Morbid (severe) obesity due to excess calories; Z68.41 - Body mass index [BMI]40.0-44.9, adult Plan: Diet and exercise (3) Colon cancer screening: Code(s): Z12.11 - Encounter for screening for malignant neoplasm of colon Plan: Patient is reminded about colonoscopy (4) Hypertension: Code(s): I10 - Essential (primary) hypertension Plan: Continue with blood pressure medication. Decrease salt intake and exercise on lisinopril 5 mg once a day (5) Breast cancer screening by mammogram: Code(s): Z12.31 - Encounter for screening mammogram for malignant neoplasm of breast Plan: Reminded about mammogram (6) Lumbar degenerative disc disease: Code(s): M51.36 - Other intervertebral disc degeneration, lumbar region Plan: Continue with medication as needed only (7) Cervical cancer screening: Code(s): Z12.4 - Encounter for screening for malignant neoplasm of cervix Plan: referral to cigarette maker (8) Generalized anxiety disorder: Code(s): F41.1 - Generalized anxiety disorder Plan: patient has been talking to a counsellor and all of a sudden did not talk to her - will inquire about this Orders: Orders IRON PROFILE Today R21 - Rash and other nonspecific skin eruption MM tomosynthesis screening BI Today Z12.31 - Encounter for screening mammogram for malignant neoplasm of breast Ferritin Today R21 - Rash and other nonspecific skin eruption Reticulocyte Count Today R21 - Rash and other nonspecific skin eruption Referrals Gastroenterology Referral Z12.11 - Encounter for screening for malignant neoplasm of colon DOG RACES MANAGER Referral Z12.4 - Encounter for screening for malignant neoplasm of cervix Medications: Refilled nabumetone 500 mg PO BID 180 tabs 1RF Z12.11 - Encounter for screening for malignant neoplasm of colon Coding Level of Care Code Tele Est Pt Level 4 (60048) Diagnoses Hypercholesterolemia E78.00 Class 3 severe obesity due to excess calories without serious comorbidity with body mass index (BMI) of 40.0 to 44.9 in adult E66.01; Z68.41 Obesity type: due to excess calories Obesity classification: adult class 3 (BMI >= 40) Serious obesity comorbidity presence: without serious comorbidity Body mass index: BMI 40.0-44.9 Colon cancer screening Z12.11 Hypertension I10 Breast cancer screening by mammogram Z12.31 Lumbar degenerative disc disease M51.36 Cervical cancer screening Z12.4 Generalized anxiety disorder F41.1
== END 2024-01-03 17:33 | disposition home or self-care (01) ==
LOC: HO.HMGH 13:35
PROVIDERS: PCP Internal Medicine; Visit Provider Internal Medicine
DX: E78.00 Pure hypercholesterolemia, unspecified (principal); E66.01 Morbid (severe) obesity due to excess calories; Z68.41 Body mass index [BMI] 40.0-44.9, adult; Z12.11 Encounter for screening for malignant neoplasm of colon; I10 Essential (primary) hypertension; Z12.31 Encounter for screening mammogram for malignant neoplasm of breast; M51.36 Other intervertebral disc degeneration, lumbar region; F41.1 Generalized anxiety disorder
CPT/HCPCS: 99214

== ENCOUNTER 2024-03-05 08:31 | Outpatient (AMB) | payer MEDICARE, MEDICAID, SELFPAY ==
[2024-03-05 08:38] VITALS: BP 114/78; PULSE 105; O2SAT 96; BMI 43.3
--- NOTE | 2024-03-05 08:38 | A.OFFPC_ITS ---
Vital Signs 03/05/24 08:38 Height 5 ft 6 in Weight 268 lb BMI 43.3 BP 114/78 Blood Pressure Location Lt brachial Position Sitting Pulse 105 H Pulse Source Pulse Oximeter Pulse Oximetry (%) 96 Oxygen Delivery Method Room Air Intake Visit Reasons: Med review Intake Note: Patient is here to follow up [employer] G[employer]er Required: No Allergies codeine [CODEINE] Allergy (Unknown, Verified 03/05/24 08:51) PALPITATIONS,SHAKY Tobacco use date assessed: 03/05/24 Dental Screening Dental Screen Date: 01/03/24 HPI Med review HPI Details 48-year-old morbidly obese female(noted 9 lb weight loss) hypercholesterolemia hypertension generalized anxiety disorder last seen in 01/03/2024 and was advised to get colonoscopy mammogram and cervical cancer screening. Patient is here for follow-up review of the notes went to [facility] December 2023 had shave biopsy showing dermatitis with eosinophils on the upper abdomen and right forearm. MAmmo next week, Gastro next week. for the rash lichen planus and will be seeing a new derm. taclolimus, ketoconazole and hydrocortisone cream. presently no counsellor. states left .Reminded about blood work. MRI lower back cancelled. 3 x and did not want reschedule. [facility] Medical History (Updated 03/05/24 @ 08:50 by Sindy Beach MD) Breast cancer screening Obesity Lumbar degenerative disc disease Dysuria GERD (gastroesophageal reflux disease) History of kidney stones Anemia Hypercholesterolemia Vitamin D deficiency Fibromyalgia Surgical History H/O gastric bypass History of left knee surgery History of tonsillectomy Family History (Updated 01/03/24 @ 13:37 by Tami Reynolds CMA) Father Myocardial infarction CVD (cardiovascular disease) Hypertension Mother Lung cancer Diabetes Social History Housing: Apartment Alcohol intake: current Alcohol intake frequency: a few times a month Patient Tobacco Use Status: Never used Tobacco e-Cigarette/Vaping Use: Never Used Second Hand Smoke Exposure: No Current occupational status: unemployed Cognitive needs: No Hearing needs: No Vision needs: No Questionnaire Thrive Questionnaire Date Thrive assessed: 01/03/24 AUDIT C Alcohol Use Questionnaire (AUDIT-C) 1. How often do you have a drink containing alcohol?: Monthly or less 2. How many drinks containing alcohol do you have on a typical day when you are drinking?: 1 or 2 3. How often do you have six or more drinks on one occasion?: Never Total Score: 1 KATHY-7 AMB Questionnaire KATHY-7 Date KATHY - 7 assessed: 01/03/24 Source: Developed by Drs. Hamzah Schmid, Mely Lee, Silvio Marr and colleagues, with an educational abril from [employer]. Physical exam (Primary Care) Vital Signs: Last Vital Signs Pulse 105 H 03/05/24 08:38 BP 114/78 03/05/24 08:38 Pulse Ox 96 03/05/24 08:38 Oxygen Delivery Method Room Air 03/05/24 08:38 BMI result Body Mass Index 43.3 Tobacco/Smoking Status: Tobacco use Status Tobacco use date assessed 03/05/24 03/05/24 08:40 Patient Tobacco Use Status Never used Tobacco 03/05/24 08:40 Tobacco use type 09/12/23 08:43 e-Cigarette/Vaping Use Never Used 03/05/24 08:40 Thrive Assessment: Date of Thrive Assessment Date Thrive assessed 01/03/24 03/05/24 08:40 Const General: alert; No acute distress Eyes Conjunctivae: conjunctivae normal Resp Auscultation: clear to auscultation bilaterally Cardio Rate: regular rate Rhythm: regular rhythm GI Inspection: Yes normal to inspection Extrem General: Yes normal to inspection and No edema Assessment and Plan Assessment & Plan (1) Morbid obesity: Code(s): E66.01 - Morbid (severe) obesity due to excess calories Plan: Continue with diet and exercise noted weight loss (2) Hypercholesterolemia: Code(s): E78.00 - Pure hypercholesterolemia, unspecified Plan: Avoid fried foods, chicken skin, eggs, butter margarine, pastries and meat. Be it pork or beef they have a lot of cholesterol LDL goal of less than 130 and triglyceride of less than 150 (3) GERD (gastroesophageal reflux disease): Code(s): K21.9 - Gastro-esophageal reflux disease without esophagitis Qualifiers: Esophagitis presence: without esophagitis Qualified Code(s): K21.9 - Gastro-esophageal reflux disease without esophagitis Plan: Avoid the foods that causes that usually spicy foods, tomato products, juices, coffee, soda and foods that your sensitive to. After eating do not lie down, allow 3-4 hours before in lie down. And keep the head of bed above 30 degrees to avoid the acid from going up. (4) Generalized anxiety disorder: Code(s): F41.1 - Generalized anxiety disorder Plan: Continue with present management on duloxetine sertraline and alprazolam (5) Colon cancer screening: Code(s): Z12.11 - Encounter for screening for malignant neoplasm of colon Plan: Reminded about colonoscopy (6) Breast cancer screening by mammogram: Code(s): Z12.31 - Encounter for screening mammogram for malignant neoplasm of breast Plan: Reminded about mammogram (7) Eczema: Code(s): L30.9 - Dermatitis, unspecified Plan: Patient follows up with Dermatology (8) Chronic low back pain: Code(s): M54.50 - Low back pain, unspecified; G89.29 - Other chronic pain Plan: On tramadol presently Orders: Orders Hepatitis B,C Profile Today L30.9 - Dermatitis, unspecified, R79.89 - Other specified abnormal findings of blood chemistry Coding Level of Care Code Est Pt Level 4 (16401) Diagnoses Morbid obesity E66.01 Hypercholesterolemia E78.00 Gastroesophageal reflux disease without esophagitis K21.9 Esophagitis presence: without esophagitis Generalized anxiety disorder F41.1 Colon cancer screening Z12.11 Breast cancer screening by mammogram Z12.31 Eczema L30.9 Chronic low back pain M54.50; G89.29
== END 2024-03-05 09:06 | disposition home or self-care (01) ==
PROVIDERS: PCP Internal Medicine; Visit Provider Internal Medicine
DX: E78.00 Pure hypercholesterolemia, unspecified (principal); E66.01 Morbid (severe) obesity due to excess calories; Z68.41 Body mass index [BMI] 40.0-44.9, adult; K21.9 Gastro-esophageal reflux disease without esophagitis; F41.1 Generalized anxiety disorder; Z12.11 Encounter for screening for malignant neoplasm of colon; Z12.31 Encounter for screening mammogram for malignant neoplasm of breast; L30.9 Dermatitis, unspecified; M54.50 Low back pain, unspecified; G89.29 Other chronic pain
CPT/HCPCS: 99214

== ENCOUNTER 2024-04-09 09:33 | Outpatient (REF) | payer MEDICARE, MEDICAID, SELFPAY ==
--- NOTE | ~2024-04-09 | MR_ITS ---
EXAMINATION: MR LUMBAR SPINE WITHOUT AND WITH CONTRAST CLINICAL INFORMATION: Palpable mass lower back. COMPARISON: X-rays of the lumbosacral spine June 2023. CT scan of the lumbosacral spine March 2022. TECHNIQUE: MRI of the lumbar spine was obtained using routine sequences with and without contrast. Intravenous contrast: Contrast dose 10 mL of Gadavist given intravenously. Skin marker placed in the area of suspected mass directed by the patient to the technologist. FINDINGS: SUBCUTANEOUS SOFT TISSUES: There is an ill-defined area of heterogeneous abnormal signal in the subcutaneous soft tissues overlying the posterior aspect of the proximal iliac bone. This area is dark on T1 and heterogeneous on T2 with areas of both bright and dark signal. This demonstrates partial enhancement. This ill-defined area extends up to 6.3 cm transverse, 6.7 cm craniocaudal and up to 3.1 cm AP. There is less prominent similar-appearing morphologic area of abnormal signal in the subcutaneous soft tissues overlying the right iliac bone and centrally between the 2 foci although evaluation is limited to axial views only. This area is dark on T1 and demonstrates minimal partial enhancement. ADDITIONAL FINDINGS: Vertebral bodies normal in height. There is mild 1 grade 1 anterolisthesis of L2 on L3 unchanged. There is multilevel degenerative disc change with disc bulging at the L2-L3 and L3-L4 with mild associated loss of the disc height. Additional generalized bulging of the L5-S1 disc without loss of disc height. Additional degenerative disc changes present at the T11-T12 disc space with generalized bulging of the disc anteriorly. L1-L2: The central canal and neural foramina are normal. Facets normal. No disc protrusion. L2-L3: There is moderate generalized bulging of the disc with slight cephalad extrusion of the disc along the posterior aspect of the inferior endplate of L2. There is bilateral facet arthrosis. These degenerative changes result in mild narrowing of the central canal and neural foramina bilaterally. L3-L4: Generalized bulging of the disc and moderate bilateral facet arthrosis result in mild narrowing of the central canal and neural foramina bilaterally. L4-L5: Moderate bilateral facet arthrosis. Findings result in minimal narrowing of the central canal. Neural foramina are patent. L5-S1: Moderate bilateral facet arthrosis along with the generalized disc bulging result in minimal narrowing of the central canal and mild narrowing of the neural foramina bilaterally MR/MR lumbar spine wo/w con IMPRESSION: 1. Abnormal signal in the subcutaneous soft tissues overlying the posterior aspect of the iliac bones bilaterally. The appearance is nonspecific. However this has almost an identical appearance as the abnormalities noted on the prior CT in 2021. The etiology is uncertain. The findings are most suggestive of areas of soft tissue contusion left greater than right. Cannot exclude evolving abscess in the left and cellulitis in the midline and on the right side. 2. Correlation with clinical presentation may help narrow the differential diagnosis. 3. Multilevel spondylosis of the lumbar spine with degenerative changes most prominent at the L2-L3 level where there is grade 1 anterolisthesis and mild narrowing of the central canal and neural foramina bilaterally unchanged compared with CT 2022. 4. Additional mild narrowing of the central canal and neural foramina bilaterally at the L3-L4 and L5-S1 levels unchanged compared with CT 2022.
[2024-04-09] MEDS: gadobutroL 10 ML VIAL IVPUSH (11:20)
[2024-04-09 12:25] LABS: MANUAL DIFF FLAG NO
[2024-04-09 12:50] LABS: Basophils Percent Auto 0.6 % (0-2); Eosinophils Absolute Auto 0.1 X10*3/uL (0.0-0.4); Eosinophils Percent Auto 1.4 % (0-4); Hematocrit 37.3 % (37.0-47.0); Hemoglobin 12.3 g/dl (12.0-16.0); Imm Gran Abs Auto 0.01 X10*3/uL (0.00-0.03); Imm Gran Pct Auto 0.2 % (0.0-0.4); Immature Retic Fraction 13.9 % (3.0-15.9); Lymphocytes Absolute Auto 2.2 X10*3/uL (1.2-4.9); Lymphocytes Percent Auto 34.5 % (20-40); Mean Corpuscular Hemoglobin 24.4 pg (27.0-33.0); Mean Platelet Volume 10.4 fL (9.4-12.3); Monocytes Absolute Auto 0.4 X10*3/uL (0.1-1.2); Neutrophils Absolute Auto 3.7 x10*3/uL (2.0-8.3); Neutrophils Percent Auto 57.3 % (45-73); Platelet Count 236 X10*3/uL (160-400); Red Blood Count 5.04 X10*6/uL (4.20-5.50); Red Cell Distribution Width 14.1 % (11.0-16.0); Retic HGB Equivalent 27.5 pg (30.0-35.0); Reticulocyte Percent 1.2 % (0.5-1.8); Reticulocytes Absolute 0.061 X10*6/uL (0.026-0.095); White Blood Count 6.4 X10*3/uL (4.8-10.8)
[2024-04-09 13:19] LABS: Estimated Average Glucose 120 mg/dL; Hemoglobin A1c % 5.8 % (<6.0)
[2024-04-09 14:07] LABS: Alanine Aminotransferase 42 U/L (0-31); Albumin Level 4.2 g/dL (3.5-5.0); Alkaline Phosphatase 127 U/L (39-117); Anion Gap 13 (12-20); Aspartate Amino Transferase 51 U/L (5-31); Bilirubin Total 0.4 mg/dL (0.0-1.0); Blood Urea Nitrogen 8 mg/dL (9-16); Calcium 9.1 mg/dL (8.4-10.2); Carbon Dioxide 26 mmol/L (22-29); Chloride 106 mmol/L (96-108); Cholesterol 183 mg/dL (<200); Estimated Glomerular Filt Rate > 60; Ferritin 11 ng/mL (10-250); Free T4 (Free Thyroxine) 0.86 ng/dL (0.71-1.85); Glucose Random 118 mg/dL (60-115); HDL Cholesterol 35 mg/dL (>40); Iron 36 mcg/dL (30-160); LDL Cholesterol Calculated 111 mg/dL (<100); Percent Iron Saturation 9 % (15-50); Potassium 3.6 mmol/L (3.3-5.1); Sodium 141 mmol/L (135-145); Thyroid Stimulating Hormone 2.18 uIU/mL (0.32-4.0); Total Iron Binding Capacity 411 mcg/dL (228-428); Total Protein 7.5 g/dL (6.5-8.0); Triglycerides 187 mg/dL (<150); Unsaturated Iron Binding 375 ug/dL
[2024-04-09 14:15] LABS: Folate > 20.0 ng/mL (> or = 4.0); Vitamin B12 1242 pg/mL (200-900)
[2024-04-10 04:19] LABS: HBS Num1 0.36 mIU/mL (0-7.99); HBc Num1 0.08 S/CO (0.00-0.79); HBsAGNum1 0.27 S/CO (0.00-0.99); Hepatitis B Core Antibody Nonreactive (Nonreactive); Hepatitis B Surface Antigen Negative (Negative); ~HepC Num1 0.05 S/CO (0.00-0.79); ~Hepatitis B Surface Antibody NONREACTIVE (Nonreactive); ~Hepatitis C Antibody Nonreactive (Nonreactive)
== END 2024-04-09 09:34 | disposition home or self-care (01) ==
LOC: HO.MRI 09:33
PROVIDERS: PCP Internal Medicine; Visit Provider Internal Medicine
DX: E66.01 Morbid (severe) obesity due to excess calories (principal); Z68.41 Body mass index [BMI] 40.0-44.9, adult; E78.00 Pure hypercholesterolemia, unspecified; R21 Rash and other nonspecific skin eruption; R79.89 Other specified abnormal findings of blood chemistry; L30.9 Dermatitis, unspecified; R22.2 Localized swelling, mass and lump, trunk
CPT/HCPCS: 36415; 72158; 80053; 80061; 82607; 82728; 82746; 83036; 83540; 84439; 84443; 85025; 85045; 86704; 86706; 86803; 87340; A9585

== ENCOUNTER 2024-04-11 08:28 | Outpatient (AMB) | payer MEDICARE, MEDICAID, SELFPAY ==
[2024-04-11 09:04] VITALS: BP 130/90; PULSE 106; TEMP 36.3; O2SAT 97; BMI 43.7
--- NOTE | 2024-04-11 09:04 | MHC.OFFWIV ---
Intake Vital Signs 04/11/24 09:04 Height 5 ft 6 in Weight 271 lb BMI 43.7 BP 130/90 H Blood Pressure Location Lt brachial Position Sitting Pulse 106 H Pulse Source Pulse Oximeter Temp 97.4 F Temp Source Temporal Artery Scan Pulse Oximetry (%) 97 Oxygen Delivery Method Room Air Intake Visit Reasons: EP sore throat white spots Intake Note: pt is here today for sore throat white spots started yesterday Patient Tobacco Use Status: Never used Tobacco Allergies acetaminophen [From NyQuil] Allergy (Mild, Verified 04/11/24 09:13) papl dextromethorphan [From NyQuil] Allergy (Mild, Verified 04/11/24 09:13) papl doxylamine [From NyQuil] Allergy (Mild, Verified 04/11/24 09:13) papl pseudoephedrine [From NyQuil] Allergy (Mild, Verified 04/11/24 09:13) papl codeine [CODEINE] Allergy (Unknown, Verified 03/05/24 08:51) PALPITATIONS,SHAKY Do you need a note to return to daycare/school/sports/work: No HPI HPI Comments History of Present Illness Details Patient is a 48-year-old female complaining of a sore throat, pain with swallowing for the last few days and a concern for strep throat. She states her has been diagnosed with strep throat as being treated and is getting better. She states she has several other issues going on that she wants to share with me. She is 1st concerned about a MRSA infection that she was treated for and wants follow-up testing. She states she has a ?low blood count? and had some labs done yesterday at [facility] and is curious for the results. She also is concerned about lichen planus on her tongue. She states she called her primary care doctor but he is on vacation and she tells me nobody is covering for him . [facility] Medical History (Updated 04/11/24 @ 09:37 by Claudine Aj PA-C) Breast cancer screening Obesity Lumbar degenerative disc disease Dysuria GERD (gastroesophageal reflux disease) History of kidney stones Anemia Hypercholesterolemia Vitamin D deficiency Fibromyalgia Surgical History H/O gastric bypass History of left knee surgery History of tonsillectomy Family History (Updated 01/03/24 @ 13:37 by Tami Reynolds CMA) Father Myocardial infarction CVD (cardiovascular disease) Hypertension Mother Lung cancer Diabetes Social History Housing: Apartment Alcohol intake: current Alcohol intake frequency: a few times a month Patient Tobacco Use Status: Never used Tobacco e-Cigarette/Vaping Use: Never Used Second Hand Smoke Exposure: No Current occupational status: unemployed Cognitive needs: No Hearing needs: No Vision needs: No Review of Systems Const All systems reviewed & are unremarkable except as noted in HPI and below Physical Exam Vital Signs: Last Vital Signs Temp 97.4 F 04/11/24 09:04 Pulse 106 H 04/11/24 09:04 BP 130/90 H 04/11/24 09:04 Pulse Ox 97 04/11/24 09:04 Oxygen Delivery Method Room Air 04/11/24 09:04 BMI result Body Mass Index 43.7 Const Other: Combative and aggressive disposition during discussion but not in any acute distress General: comfortable and no acute distress Nutritional Appearance: obese Orientation/consciousness: patient oriented x3 Limitations: ambulation with cane HEENT Head: Yes normal to inspection Ears: hearing grossly normal bilaterally and external ears normal General nose exam: Normal external nose present, Normal nares present and No nasal discharge present Face and sinus: Yes normal facial exam Mouth: Normal oral and palatal mucosa present and moist mucous membranes Throat: Yes posterior oropharynx abnormal (Exudates present) Eyes General: appearance normal, both eyes and all related structures Neck Neck: Yes normal visual inspection Resp Effort & Inspection: normal respiratory effort, able to speak in complete sentences and no respiratory distress Skin General skin exam: no rashes or lesions noted Neuro General: patient oriented x3 Extrem General: Yes normal to inspection and Yes no clubbing, cyanosis or edema Results AMB Rapid Strep AMB Rapid Strep Negative Last Edit by BETTE Rueda on 04/11/24 09:46 Results Reviewed Results Reviewed: Laboratory Last Values Strep Scn Rapid Clinic Negative 04/11/24 09:41 Assessment & Plan Assessment & Plan (1) Strep pharyngitis: Code(s): J02.0 - Streptococcal pharyngitis Plan: Will treat based on symptoms and the fact she has an exposure at home and exudates in her throat despite our rapid strep being negative. Amoxicillin sent to pharmacy. Also called telegraph office manager of [employer] to ask someone to call the patient back with her lab results as well as to give her direction on follow-up testing for MRSA. I think patient would benefit from a follow-up visit with somebody in her PCP office HAILEY, the telegraph office manager said she will arrange. Plan See above Orders: Orders AMB Rapid Strep Screen Today Z13.9 - Encounter for screening, unspecified Medications: New amoxicillin 500 mg PO BID 20 tabs 0RF Coding Level of Care Code Est Pt Level 4 (25796) Diagnoses Strep pharyngitis J02.0
== END 2024-04-11 09:51 | disposition home or self-care (01) ==
PROVIDERS: PCP Internal Medicine; Visit Provider Physician Assistant
DX: J02.0 Streptococcal pharyngitis (principal)
CPT/HCPCS: 87880; 99214

== ENCOUNTER 2024-07-12 08:37 | Outpatient (AMB) | payer MEDICARE, MEDICAID, SELFPAY ==
--- NOTE | 2024-07-12 08:38 | MHC.PC.OV ---
Intake Visit Reasons: KATHY, LBP Intake Note: Patient is here to follow up on KATHY, LBP. Mucker Operator Required: No Allergies acetaminophen [From NyQuil] Allergy (Mild, Verified 07/12/24 08:38) papl dextromethorphan [From NyQuil] Allergy (Mild, Verified 07/12/24 08:38) papl doxylamine [From NyQuil] Allergy (Mild, Verified 07/12/24 08:38) papl pseudoephedrine [From NyQuil] Allergy (Mild, Verified 07/12/24 08:38) papl codeine [CODEINE] Allergy (Unknown, Verified 07/12/24 08:38) PALPITATIONS,SHAKY Medication List - Last Reconciled 07/12/24 by Sindy Beach MD albuterol sulfate 90 mcg/actuation (Ventolin HFA) 2 puffs inhalation Q6H PRN alprazolam 2 mg PO TID 30 days [BED PADS As directed] [BEDSIDE COMMODE As directed] blood sugar diagnostic (FreeStyle Lite Strips) As directed check the BS QD blood-glucose meter (FreeStyle Lite Meter kit) As directed capsaicin 0.025% (Capsicum) 1 patch topical TID PRN cholecalciferol (vitamin D3) 50 mcg PO DAILY clotrimazole-betamethasone 1-0.05 % 1 appl topical BID 2 weeks cyanocobalamin (vitamin B-12) 1,000 mcg PO DAILY cyclobenzaprine 10 mg PO TID PRN 30 days duloxetine (Cymbalta) 60 mg PO DAILY 90 days ferrous sulfate 325 mg PO DAILY fluticasone propionate 50 mcg/actuation 2 sprays intranasal DAILY gabapentin 600 mg PO TID [Heavy duty shower bench with BACK As directed] hydrocortisone 1% (Anti-Itch (hydrocortisone)) 1 appl topical TID PRN ketoconazole 2% 1 appl topical 2XW lancets (FreeStyle Lancets) As directed check BS QD lisinopril 5 mg PO DAILY mupirocin 2% 1 appl topical BID nabumetone 500 mg PO BID [PADS for her underwear As directed] tacrolimus 0.1% 1 appl topical BID tramadol 50 mg PO Q6-8H PRN 30 days triamcinolone acetonide 0.5% 1 appl topical BID [WALKER with SEAT As directed] Tobacco use date assessed: 03/05/24 Dental Screening Dental Screen Date: 01/03/24 HPI KATHY, LBP HPI Details 49-year-old morbidly obese female with a history of hypercholesterolemia GERD generalized anxiety disorder and chronic low back pain coming in for follow-up through Telehealth. Patient was originally scheduled for in clinic visit but switched it to Telehealth. Patient has not had a colonoscopy or mammogram. [facility] Medical History (Updated 07/12/24 @ 09:13 by Sindy Beach MD) Breast cancer screening Obesity Lumbar degenerative disc disease Dysuria GERD (gastroesophageal reflux disease) History of kidney stones Anemia Hypercholesterolemia Vitamin D deficiency Fibromyalgia Surgical History H/O gastric bypass History of left knee surgery History of tonsillectomy Family History Father Myocardial infarction CVD (cardiovascular disease) Hypertension Mother Lung cancer Diabetes Social History Housing: Apartment Alcohol intake: current Alcohol intake frequency: a few times a month Patient Tobacco Use Status: Never used Tobacco e-Cigarette/Vaping Use: Never Used Second Hand Smoke Exposure: No service: No Current occupational status: unemployed Cognitive needs: No Hearing needs: No Vision needs: No Questionnaire Thrive Questionnaire Date Thrive assessed: 01/03/24 KATHY-7 AMB Questionnaire KATHY-7 Date KATHY - 7 assessed: 01/03/24 Source: Developed by Drs. Hamzah Schmid, Mely Lee, Silvio Marr and colleagues, with an educational abril from [employer]. Physical exam (Primary Care) Tobacco/Smoking Status: Tobacco use Status Tobacco use date assessed 03/05/24 07/12/24 08:41 Patient Tobacco Use Status Never used Tobacco 07/12/24 08:41 Tobacco use type 09/12/23 08:43 e-Cigarette/Vaping Use Never Used 07/12/24 08:41 Thrive Assessment: Date of Thrive Assessment Date Thrive assessed 01/03/24 07/12/24 08:41 Telehealth Telehealth Telehealth Platform: Telephone Location of provider rendering services: practice address Location of patient: address on file Patient Identification confirmed using: Name, : Yes Telehealth method: voice only Patient verbally consented to treatment: Yes Patient verbally consented to billing insurance company: Yes Patient informed of any privacy concerns related to visit: Yes Minutes spent on Phone/Video with Pt.: 25 Assessment and Plan Assessment & Plan (1) Morbid obesity: Code(s): E66.01 - Morbid (severe) obesity due to excess calories Plan: Diet and exercise (2) Hypercholesterolemia: Code(s): E78.00 - Pure hypercholesterolemia, unspecified Plan: Avoid fried foods, chicken skin, eggs, butter margarine, pastries and meat. Be it pork or beef they have a lot of cholesterol LDL goal of less than 130 and triglyceride of less than 150 (3) GERD (gastroesophageal reflux disease): Code(s): K21.9 - Gastro-esophageal reflux disease without esophagitis Qualifiers: Esophagitis presence: without esophagitis Qualified Code(s): K21.9 - Gastro-esophageal reflux disease without esophagitis Plan: Avoid the foods that causes that usually spicy foods, tomato products, juices, coffee, soda and foods that your sensitive to. After eating do not lie down, allow 3-4 hours before in lie down. And keep the head of bed above 30 degrees to avoid the acid from going up. (4) Impaired glucose tolerance: Code(s): R73.02 - Impaired glucose tolerance (oral) (5) LFT elevation: Code(s): R79.89 - Other specified abnormal findings of blood chemistry Plan: Decrease the amount of carbohydrate intake, pasta, bread, rice and potatoes are all sugar and that is aside from all the sweet stuff, remember that fruits are good but they are Sweet also. (6) Generalized anxiety disorder: Code(s): F41.1 - Generalized anxiety disorder Plan: Continue with present medication and discussed about counseling. declined [facility] counselling. will refer to psychiatric counselling (7) Lumbar degenerative disc disease: Code(s): M51.36 - Other intervertebral disc degeneration, lumbar region Plan: Keep active lose the weight (8) Anemia: Code(s): D64.9 - Anemia, unspecified Plan: PAtient was advise to take iron but declined . Will repeat the blood test (9) Hip pain, right: Code(s): M25.551 - Pain in right hip Plan: Discussed about the weight as a problem and will do the x-ray. (10) Cervical cancer screening: Code(s): Z12.4 - Encounter for screening for malignant neoplasm of cervix Plan: Patient is referred to Gynecology (11) Colon cancer screening: Code(s): Z12.11 - Encounter for screening for malignant neoplasm of colon Plan: Reminded about gastroenterology referral for colonoscopy (12) Breast cancer screening by mammogram: Code(s): Z12.31 - Encounter for screening mammogram for malignant neoplasm of breast Plan: Reminded about mammogram Orders: Orders XR hip RT w PEL1V Today M25.551 - Pain in right hip Lipid Panel Today E78.00 - Pure hypercholesterolemia, unspecified, I10 - Essential (primary) hypertension US abdomen complete Today R79.89 - Other specified abnormal findings of blood chemistry Hemoglobin A1c Today R79.89 - Other specified abnormal findings of blood chemistry Complete Blood Count Auto Diff Today I10 - Essential (primary) hypertension Ferritin Today I10 - Essential (primary) hypertension IRON PROFILE Today R79.89 - Other specified abnormal findings of blood chemistry Reticulocyte Count Today R79.89 - Other specified abnormal findings of blood chemistry Vitamin B12 and Folate Today R79.89 - Other specified abnormal findings of blood chemistry Referrals Psychiatry Outpatient Consultation Service F41.1 - Generalized anxiety disorder HYDRAULIC MINER BLASTING Referral Z12.4 - Encounter for screening for malignant neoplasm of cervix Coding Level of Care Code Tele Est Pt Level 4 (20169) Diagnoses Morbid obesity E66.01 Hypercholesterolemia E78.00 Gastroesophageal reflux disease without esophagitis K21.9 Esophagitis presence: without esophagitis Impaired glucose tolerance R73.02 LFT elevation R79.89 Generalized anxiety disorder F41.1 Lumbar degenerative disc disease M51.36 Anemia D64.9 Hip pain, right M25.551 Cervical cancer screening Z12.4 Colon cancer screening Z12.11 Breast cancer screening by mammogram Z12.31
== END 2024-07-12 15:32 | disposition home or self-care (01) ==
LOC: HO.HMCH 08:37
PROVIDERS: PCP Internal Medicine; Visit Provider Internal Medicine
DX: E78.00 Pure hypercholesterolemia, unspecified (principal); E66.01 Morbid (severe) obesity due to excess calories; K21.9 Gastro-esophageal reflux disease without esophagitis; R73.02 Impaired glucose tolerance (oral); R79.89 Other specified abnormal findings of blood chemistry; F41.1 Generalized anxiety disorder; M51.36 Other intervertebral disc degeneration, lumbar region; D64.9 Anemia, unspecified; M25.551 Pain in right hip; Z12.11 Encounter for screening for malignant neoplasm of colon; Z12.31 Encounter for screening mammogram for malignant neoplasm of breast

== ENCOUNTER → 2024-07-12 08:37 | Outpatient (BNVA) | payer MEDICARE, MEDICAID, SELFPAY | PROVIDERS: PCP Internal Medicine; Visit Provider Internal Medicine ==

== ENCOUNTER 2024-07-29 09:25 | Outpatient (REF) | payer MEDICARE, MEDICAID, SELFPAY ==
--- NOTE | ~2024-07-29 | MM_ITS ---
EXAMINATION: MM SCREENING DIGITAL BREAST TOMOSYNTHESIS, BILATERAL CLINICAL INFORMATION: Screening. Asymptomatic. COMPARISON: Mammography: Comparison is made with available priors TECHNIQUE: Digital breast mammography with tomosynthesis is performed in both the craniocaudal and mediolateral oblique views along with computer-aided detection (CAD). FINDINGS: There are scattered areas of fibroglandular density (ACR BI-RADS breast composition Category b). There are no significant masses, abnormal calcifications, or other abnormalities. MM/MM tomosynthesis screening BI IMPRESSION: No mammographic evidence of malignancy. ASSESSMENT: BI-RADS BI-RADS 1 - Negative RECOMMENDATION: Routine annual mammography screening. 1 year F/U This examination should not preclude the clinical evaluation of a suspicious palpable abnormality. This patient's information was entered into a reminder system with a target due date for their next mammogram. Electronically signed by: Marcie Hyde DO 08/09/2024 09:51 AM EDT
== END 2024-07-29 09:26 | disposition home or self-care (01) ==
LOC: HO.MAMMO 09:25
PROVIDERS: PCP Internal Medicine; Visit Provider Internal Medicine
DX: Z12.31 Encounter for screening mammogram for malignant neoplasm of breast (principal)
CPT/HCPCS: 77063; 77067

== ENCOUNTER → 2024-07-29 09:30 | Outpatient (BNV) | payer MEDICARE, MEDICAID, SELFPAY | PROVIDERS: PCP Internal Medicine; Visit Provider Internal Medicine | DX: Z12.31 Encounter for screening mammogram for malignant neoplasm of breast (principal) | CPT/HCPCS: 77063; 77067 ==

== ENCOUNTER 2024-08-27 08:58 | Outpatient (REF) | payer MEDICARE, MEDICAID, SELFPAY ==
[2024-08-27 11:05] LABS: MANUAL DIFF FLAG NO
[2024-08-27 12:03] LABS: Basophils Percent Auto 0.7 % (0-2); Eosinophils Absolute Auto 0.1 X10*3/uL (0.0-0.4); Eosinophils Percent Auto 1.5 % (0-4); Hematocrit 37.3 % (37.0-47.0); Imm Gran Abs Auto 0.03 X10*3/uL (0.00-0.03); Imm Gran Pct Auto 0.5 % (0.0-0.4); Immature Retic Fraction 14.8 % (3.0-15.9); Lymphocytes Absolute Auto 2.2 X10*3/uL (1.2-4.9); Lymphocytes Percent Auto 37.7 % (20-40); Mean Corpuscular HGB Conc 32.2 g/dl (31.0-35.0); Mean Corpuscular Hemoglobin 24.4 pg (27.0-33.0); Mean Corpuscular Volume 75.8 fL (80.0-98.0); Monocytes Absolute Auto 0.4 X10*3/uL (0.1-1.2); Neutrophils Absolute Auto 3.1 x10*3/uL (2.0-8.3); Neutrophils Percent Auto 52.6 % (45-73); Platelet Count 236 X10*3/uL (160-400); Red Blood Count 4.92 X10*6/uL (4.20-5.50); Red Cell Distribution Width 13.2 % (11.0-16.0); Retic HGB Equivalent 30.5 pg (30.0-35.0); Reticulocyte Percent 1.6 % (0.5-1.8); White Blood Count 5.8 X10*3/uL (4.8-10.8)
[2024-08-27 12:07] LABS: Estimated Average Glucose 128 mg/dL; Hemoglobin A1C 141.7504 umol/L; Hemoglobin A1c % 6.1 % (<6.0); Total Hemoglobin (HGBA1C) 3262.0876 umol/L
[2024-08-27 12:53] LABS: Cholesterol 201 mg/dL (<200); HDL Cholesterol 27 mg/dL (>40); Iron 44 mcg/dL (30-160); LDL Cholesterol Calculated 130 mg/dL (<100); Percent Iron Saturation 11 % (15-50); Total Iron Binding Capacity 419 mcg/dL (228-428); Triglycerides 221 mg/dL (<150); Unsaturated Iron Binding 375 ug/dL
[2024-08-27 12:59] LABS: Ferritin 23 ng/mL (10-250)
[2024-08-27 13:12] LABS: Vitamin B12 924 pg/mL (200-900)
== END 2024-08-27 08:59 | disposition home or self-care (01) ==
LOC: HO.US 08:58
PROVIDERS: PCP Internal Medicine; Visit Provider Internal Medicine
DX: M25.551 Pain in right hip (principal); R79.89 Other specified abnormal findings of blood chemistry; E78.00 Pure hypercholesterolemia, unspecified; I10 Essential (primary) hypertension
CPT/HCPCS: 36415; 73502; 76700; 80061; 82607; 82728; 82746; 83036; 83540; 85025; 85045

== ENCOUNTER 2024-11-06 07:39 | Outpatient (AMB) | payer MEDICARE, MEDICAID, SELFPAY ==
[2024-11-06 08:05] VITALS: BP 148/92; PULSE 102; O2SAT 95; BMI 43.9
--- NOTE | 2024-11-06 08:05 | A.OFFPC_ITS ---
Vital Signs 11/06/24 08:05 Height 5 ft 6 in Weight 272 lb BMI 43.9 BP 148/92 H Blood Pressure Location Lt brachial Position Sitting Pulse 102 H Pulse Source Pulse Oximeter Pulse Oximetry (%) 95 Oxygen Delivery Method Room Air Intake Visit Reasons: Med review 3 month f/u scott from 10/07 Allergies acetaminophen [From NyQuil] Allergy (Mild, Verified 11/06/24 08:05) papl dextromethorphan [From NyQuil] Allergy (Mild, Verified 11/06/24 08:05) papl doxylamine [From NyQuil] Allergy (Mild, Verified 11/06/24 08:05) papl pseudoephedrine [From NyQuil] Allergy (Mild, Verified 11/06/24 08:05) papl codeine [CODEINE] Allergy (Unknown, Verified 11/06/24 08:05) PALPITATIONS,SHAKY Tobacco use date assessed: 11/06/24 Dental Screening Dental Screen Date: 11/06/24 Did you have a dental visit in the last 12 months?: Yes Did you have a dental problem in the last 6 months where you did not have access to dental care?: No Was dental information given to patient?: Patient has dentist HPI Med review 3 month f/u scott from 10/07 HPI Details The patient is a 49-year-old female presenting with exacerbation of neda pic dermatitis, which she has been managing for two years. She reports persistent symptoms including pruritic, erythematous rashes spreading to her scalp, breasts, pubic area, and oral mucosa. Initially, she was managed with multiple topical therapies, including Tacrolimus, Eucrisa, and various corticosteroid creams. Despite these interventions, she continues to experience frequent flare-ups, which are exacerbated by stress. Concurrently, she reports a diagnosis of MRSA, confirmed by swab cultures, and a history of partial resolution with past antibiotic therapy, specifically mentioning improvement with amoxicillin. The patient expresses significant frustration with her current dermatological care and the lack of antibiotic conformance to prior successful regimens. Her past medical history is notable for hypertension, anxiety exacerbated by her dermatological condition, and previous psychological support for bipolar disorder. Moreover, she reports a history of gallstones and fatty liver, with no current hepatic symptoms or gastrointestinal discomfort. She has a recent increase in stress levels, which is impacting her mental health and potentially worsening her dermatologic symptoms. Additionally, hyperlipidemia was recorded in past reports, with dietary changes recommended. [facility] Medical History (Updated 11/06/24 @ 08:42 by Sindy Beach MD) LFT elevation Breast cancer screening Obesity Lumbar degenerative disc disease Dysuria GERD (gastroesophageal reflux disease) History of kidney stones Anemia Hypercholesterolemia Vitamin D deficiency Fibromyalgia Surgical History H/O gastric bypass History of left knee surgery History of tonsillectomy Family History Father Myocardial infarction CVD (cardiovascular disease) Hypertension Mother Lung cancer Diabetes Social History Housing: Apartment Alcohol intake: current Alcohol intake frequency: a few times a month Patient Tobacco Use Status: Never used Tobacco Tobacco use type: Cigarette e-Cigarette/Vaping Use: Never Used Second Hand Smoke Exposure: No service: No Current occupational status: unemployed Cognitive needs: No Hearing needs: No Vision needs: No Questionnaire PHQ-9 Over the last 2 weeks, how often have you been bothered by any of the following problems? 1. Little interest or pleasure in doing things: several days 2. Feeling down, depressed, or hopeless: several days 3. Trouble falling or staying asleep, or sleeping too much: not at all 4. Feeling tired or having little energy: not at all 5. Poor appetite or overeating: not at all 6. Feeling bad about yourself - or that you are a failure or have let yourself or your family down: not at all 7. Trouble concentrating on things, such as reading the newspaper or watching television: not at all 8. Moving or speaking so slowly that other people could have noticed. Or the opposite - being so fidgety or restless that you have been moving around a lot more than usual: not at all 9. Thoughts that you would be better off or of hurting yourself in some way: not at all Total score: 2 Depression Screening Interpretation: Positive Depression Screening Done: Yes Source: Developed by Drs. Hamzah Schmid, Mely Lee, Silvio Marr and colleagues, with an educational abril from [employer]. Thrive Questionnaire Date Thrive assessed: 11/06/24 I am a: Patient What is your living situation today?: I have a steady place to live Within the past 12 months, did the food you bought not last and you didn't have the money to get more?: Never true Within the past 12 months, did you worry whether your food would run out before you got money to buy more?: Never true Do you have trouble paying for medicines?: No Do you have trouble getting transportation to medical appointments?: No Do you have trouble paying your heating and electricity bill?: No Do you have trouble taking care of your child, family member or friend?: No Do you have trouble with day-to-day activities such as bathing, preparing meals, shopping, managing finances, etc.?: No Are you currently unemployed and looking for a job?: No Are you interested in more education?: No Currently or been in a relationship where the following occur: No concerns reported THRIVE Score: 0 AUDIT C Alcohol Use Questionnaire (AUDIT-C) 1. How often do you have a drink containing alcohol?: Monthly or less 2. How many drinks containing alcohol do you have on a typical day when you are drinking?: 1 or 2 3. How often do you have six or more drinks on one occasion?: Never Total Score: 1 KATHY-7 AMB Questionnaire KATHY-7 Date KATHY - 7 assessed: 11/06/24 Feeling nervous, anxious, or on edge: 0 = Not at all Not being able to stop or control worryin = Not at all Worrying too much about different things: 0 = Not at all Trouble relaxin = Not at all Being so restless that it is hard to sit still: 0 = Not at all Becoming easily annoyed or irritable: 0 = Not at all Feeling afraid as if something awful might happen: 0 = Not at all Total KATHY-7 score (0-4 normal; 5-9 mild; 10-14 moderate; 15-21 severe): 0 Source: Developed by Drs. Hamzah Schmid, Mely Lee, Silvio Marr and colleagues, with an educational abril from [employer]. Physical exam (Primary Care) Vital Signs: Last Vital Signs Pulse 102 H 11/06/24 08:05 BP 148/92 H 11/06/24 08:05 Pulse Ox 95 11/06/24 08:05 Oxygen Delivery Method Room Air 11/06/24 08:05 BMI result Body Mass Index 43.9 Tobacco/Smoking Status: Tobacco use Status Tobacco use date assessed 11/06/24 11/06/24 08:19 Patient Tobacco Use Status Never used Tobacco 11/06/24 08:19 Tobacco use type Cigarette 11/06/24 08:19 e-Cigarette/Vaping Use Never Used 11/06/24 08:19 PHQ-9: PHQ-9 Score PHQ-9: Total score 2 11/06/24 08:46 Depression Screening Interpretation: Positive Thrive Assessment: Date of Thrive Assessment Date Thrive assessed 11/06/24 11/06/24 08:19 Currently or been in a relationship where the following occur: No concerns reported Const General: alert; No acute distress Eyes Conjunctivae: conjunctivae normal Resp Auscultation: clear to auscultation bilaterally Cardio Rate: regular rate Rhythm: regular rhythm GI Inspection: Yes normal to inspection Extrem General: Yes normal to inspection and No edema Coding Level of Care Code Est Pt Level 4 (03672) Complex EM visit Add On G2211 Diagnoses Hepatic steatosis K76.0 Cholelithiasis K80.20 Microcytosis R71.8 Impaired glucose tolerance R73.02 Morbid obesity E66.01 Lumbar degenerative disc disease M51.36 Hypertension I10 Colon cancer screening Z12.11 Eczema L30.9 Gastroesophageal reflux disease without esophagitis K21.9 Esophagitis presence: without esophagitis Hypercholesterolemia E78.00 Generalized anxiety disorder F41.1 Assessment & Plan Assessment & Plan (1) Hepatic steatosis: Comment: September 2024 Code(s): K76.0 - Fatty (change of) liver, not elsewhere classified Category: Medical (2) Cholelithiasis: Comment: September 2024 Code(s): K80.20 - Calculus of gallbladder without cholecystitis without obstruction Category: Medical (3) Microcytosis: Code(s): R71.8 - Other abnormality of red blood cells Category: Medical (4) Impaired glucose tolerance: Code(s): R73.02 - Impaired glucose tolerance (oral) Category: Medical (5) Morbid obesity: Code(s): E66.01 - Morbid (severe) obesity due to excess calories Category: Medical (6) Lumbar degenerative disc disease: Code(s): M51.36 - Other intervertebral disc degeneration, lumbar region Category: Medical (7) Hypertension: Code(s): I10 - Essential (primary) hypertension Category: Medical (8) Colon cancer screening: Code(s): Z12.11 - Encounter for screening for malignant neoplasm of colon Category: Medical (9) Eczema: Code(s): L30.9 - Dermatitis, unspecified Category: Medical Plan: patient was advised to see Dermatology (10) GERD (gastroesophageal reflux disease): Code(s): K21.9 - Gastro-esophageal reflux disease without esophagitis Category: Medical Qualifiers: Esophagitis presence: without esophagitis Qualified Code(s): K21.9 - Gastro-esophageal reflux disease without esophagitis (11) Hypercholesterolemia: Code(s): E78.00 - Pure hypercholesterolemia, unspecified Category: Medical (12) Generalized anxiety disorder: Code(s): F41.1 - Generalized anxiety disorder Category: Medical Plan - For Atopic Dermatitis: Continue current regimen with emphasis on minimizing steroid use to avoid skin atrophy. Consider requesting previous successful medications like Eucrisa and Tacrolimus to be reinstated. - For MRSA Infection: Reassess antibiotic sensitivity and consider previous effective antibiotics given her history of improvement with amoxicillin. Coordinate with dermatology for further cultures and treatment. - For Anxiety and Bipolar Disorder: Reinforce importance of stress management and psychological support. Evaluate need for psychiatric consultation or intervention if symptoms further exacerbate. - For Essential Hypertension: Monitor blood pressure regularly, emphasizing home measurements. Adjust current antihypertensive medication if elevated readings persist. - For Fatty Liver: Advise on diet modifications reducing fatty food intake, monitor liver function tests as indicated. - For Gallstones: Patient education on symptoms indicating biliary colic. Avoidance of high-fat meals is recommended to prevent gallbladder attacks. - For Hyperlipidemia: Initiate or enhance lipid-lowering therapy considering current triglyceride levels; encourage adherence to dietary changes to manage elevated cholesterol. - Preventative Care: Reinforce adherence to annual health maintenance screenings, encourage engagement with therapeutic lifestyle changes, and consider vaccination status given ongoing flu and RSV seasons. - Follow-up: Coordination with dermatology for skin management and MRSA follow- up is essential. - Encourage compliance with lifestyle recommendations to manage chronic conditions proactively. Orders: Orders Free T4 (Free Thyroxine) 3 Months I10 - Essential (primary) hypertension Comprehensive Met. Panel 3 Months I10 - Essential (primary) hypertension Complete Blood Count Auto Diff 3 Months I10 - Essential (primary) hypertension Lipid Panel 3 Months E78.00 - Pure hypercholesterolemia, unspecified, I10 - Essential (primary) hypertension Hemoglobin A1c 3 Months I10 - Essential (primary) hypertension Thyroid Stimulating Hormone 3 Months I10 - Essential (primary) hypertension Vitamin B12 and Folate 3 Months I10 - Essential (primary) hypertension Vitamin D 25-OH Total 3 Months I10 - Essential (primary) hypertension
== END 2024-11-06 11:01 | disposition home or self-care (01) ==
PROVIDERS: PCP Internal Medicine; Visit Provider Internal Medicine
DX: K80.20 Calculus of gallbladder without cholecystitis without obstruction (principal); E66.01 Morbid (severe) obesity due to excess calories; Z68.41 Body mass index [BMI] 40.0-44.9, adult; K76.0 Fatty (change of) liver, not elsewhere classified; R71.8 Other abnormality of red blood cells; R73.02 Impaired glucose tolerance (oral); M51.369 Other intervertebral disc degeneration, lumbar region without mention of lumbar back pain or lower extremity pain; I10 Essential (primary) hypertension; Z12.11 Encounter for screening for malignant neoplasm of colon; L30.9 Dermatitis, unspecified; K21.9 Gastro-esophageal reflux disease without esophagitis; E78.00 Pure hypercholesterolemia, unspecified; F41.1 Generalized anxiety disorder

== ENCOUNTER → 2024-11-06 07:39 | Outpatient (BNVA) | payer MEDICARE, MEDICAID, SELFPAY | PROVIDERS: PCP Internal Medicine; Visit Provider Internal Medicine | DX: K76.0 Fatty (change of) liver, not elsewhere classified (principal); K80.20 Calculus of gallbladder without cholecystitis without obstruction; R71.8 Other abnormality of red blood cells; R73.02 Impaired glucose tolerance (oral); E66.01 Morbid (severe) obesity due to excess calories; M51.369 Other intervertebral disc degeneration, lumbar region without mention of lumbar back pain or lower extremity pain; I10 Essential (primary) hypertension; L30.9 Dermatitis, unspecified; K21.9 Gastro-esophageal reflux disease without esophagitis; E78.00 Pure hypercholesterolemia, unspecified; F41.1 Generalized anxiety disorder | CPT/HCPCS: 99212 ==

== ENCOUNTER 2025-01-28 16:10 | Outpatient (AMB) | payer MEDICARE, MEDICAID, SELFPAY ==
[2025-01-28 16:16] VITALS: BP 174/102; PULSE 92; TEMP 36.3; O2SAT 99; BMI 44.4
--- NOTE | 2025-01-28 16:16 | MHC.PC.OV ---
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 Accompanied by: Self / Same As Patient Allergies acetaminophen [From NyQuil] Allergy (Mild, Verified 01/28/25 16:17) papl dextromethorphan [From NyQuil] Allergy (Mild, Verified 01/28/25 16:17) papl doxylamine [From NyQuil] Allergy (Mild, Verified 01/28/25 16:17) papl pseudoephedrine [From NyQuil] Allergy (Mild, Verified 01/28/25 16:17) papl codeine [CODEINE] Allergy (Unknown, Verified 01/28/25 16:17) PALPITATIONS,SHAKY Medication List - Last Reconciled 01/28/25 by Sindy Beach MD albuterol sulfate 90 mcg/actuation (Ventolin HFA) 2 puffs inhalation Q6H PRN alprazolam 2 mg PO TID 30 days [BED PADS As directed] [BEDSIDE COMMODE As directed] blood sugar diagnostic (FreeStyle Lite Strips) As directed check the QD blood-glucose meter (FreeStyle Lite Meter kit) As directed capsaicin 0.025% (Capsicum) 1 patch topical TID PRN cholecalciferol (vitamin D3) 50 mcg PO DAILY clotrimazole-betamethasone 1-0.05 % 1 appl topical BID 2 weeks crisaborole 2% (Eucrisa) 1 appl topical BID cyanocobalamin (vitamin B-12) 1,000 mcg PO DAILY duloxetine (Cymbalta) 60 mg PO DAILY 90 days ferrous sulfate 325 mg PO DAILY fluconazole 150 mg PO Q3D 2 doses fluticasone propionate 50 mcg/actuation 2 sprays intranasal DAILY gabapentin 600 mg PO TID [Heavy duty shower bench with BACK As directed] hydrocortisone 1% (Anti-Itch (hydrocortisone)) 1 appl topical TID PRN hydrocortisone 2.5% (Proctosol HC) 1 appl MD BID-QID PRN ketoconazole 2% 1 appl topical 2XW lancets (FreeStyle Lancets) As directed check BS QD lisinopril-hydrochlorothiazide 10-12.5 mg 1 tab PO BID mupirocin 2% 1 appl topical BID nabumetone 500 mg PO BID [PADS for her underwear As directed] tacrolimus 0.1% 1 appl topical BID tizanidine 4 mg PO BEDTIME PRN tramadol 50 mg PO Q6-8H PRN 30 days triamcinolone acetonide 0.5% 1 appl topical BID triamcinolone acetonide 0.025% topical triamcinolone acetonide 0.1% topical [WALKER with SEAT As directed] Tobacco use date assessed: 01/28/25 Dental Screening Dental Screen Date: 01/28/25 Did you have a dental visit in the last 12 months?: Yes Did you have a dental problem in the last 6 months where you did not have access to dental care?: No Was dental information given to patient?: Patient has dentist HPI Med Review 3M Follow Up HPI Details Patient self medicated with the BP with 5 tabs of lisinopril once a day-she has been taking > 6 weeks already of this. state anxiety. states looking for a place for counselling and therapist [facility] Medical History (Updated 01/28/25 @ 17:02 by Sindy Beach MD) Labile blood glucose LFT elevation Breast cancer screening Obesity Lumbar degenerative disc disease Dysuria GERD (gastroesophageal reflux disease) History of kidney stones Anemia Hypercholesterolemia Vitamin D deficiency Fibromyalgia Surgical History H/O gastric bypass History of left knee surgery History of tonsillectomy Family History Father Myocardial infarction CVD (cardiovascular disease) Hypertension Mother Lung cancer Diabetes Social History Housing: Apartment Alcohol intake: current Alcohol intake frequency: a few times a month Patient Tobacco Use Status: Never used Tobacco Tobacco use type: Cigarette e-Cigarette/Vaping Use: Never Used Second Hand Smoke Exposure: No service: No Current occupational status: unemployed Cognitive needs: Yes (Cane) Hearing needs: No Vision needs: No Questionnaire PHQ-9 Over the last 2 weeks, how often have you been bothered by any of the following problems? 1. Little interest or pleasure in doing things: not at all 2. Feeling down, depressed, or hopeless: more than half the days 3. Trouble falling or staying asleep, or sleeping too much: several days 4. Feeling tired or having little energy: more than half the days 5. Poor appetite or overeating: several days 6. Feeling bad about yourself - or that you are a failure or have let yourself or your family down: not at all 7. Trouble concentrating on things, such as reading the newspaper or watching television: not at all 8. Moving or speaking so slowly that other people could have noticed. Or the opposite - being so fidgety or restless that you have been moving around a lot more than usual: not at all 9. Thoughts that you would be better off or of hurting yourself in some way: not at all Total score: 6 Depression Screening Interpretation: Positive Depression Screening Done: Yes 53492 - PHQ-9 Billing: Yes Source: Developed by Drs. Hamzah Schmid, Mely Lee, Silvio Marr and colleagues, with an educational abril from [employer]. Thrive Questionnaire Date Thrive assessed: 01/28/25 I am a: Patient What is your living situation today?: I have a steady place to live Within the past 12 months, did the food you bought not last and you didn't have the money to get more?: Never true Within the past 12 months, did you worry whether your food would run out before you got money to buy more?: Never true Do you have trouble paying for medicines?: No Do you have trouble getting transportation to medical appointments?: No Do you have trouble paying your heating and electricity bill?: No Do you have trouble taking care of your child, family member or friend?: No Do you have trouble with day-to-day activities such as bathing, preparing meals, shopping, managing finances, etc.?: No Are you currently unemployed and looking for a job?: No Are you interested in more education?: No Currently or been in a relationship where the following occur: No concerns reported THRIVE Score: 0 AUDIT C Alcohol Use Questionnaire (AUDIT-C) 1. How often do you have a drink containing alcohol?: Never 3. How often do you have six or more drinks on one occasion?: Never Total Score: 0 Score Reviewed/Action Taken: Yes KATHY-7 AMB Questionnaire KATHY-7 Date KATHY - 7 assessed: 01/28/25 Feeling nervous, anxious, or on edge: 3 = Nearly every day Not being able to stop or control worryin = Nearly every day Worrying too much about different things: 3 = Nearly every day Trouble relaxin = Nearly every day Being so restless that it is hard to sit still: 0 = Not at all Becoming easily annoyed or irritable: 0 = Not at all Feeling afraid as if something awful might happen: 0 = Not at all Total KATHY-7 score (0-4 normal; 5-9 mild; 10-14 moderate; 15-21 severe): 12 Source: Developed by Drs. Hamzah Schmid, Mely Lee, Silvio Marr and colleagues, with an educational abril from [employer]. KATHY-7 Assessment Billing KATHY-7 Assessment Tool: KATHY-7 Assessment 98898 Physical exam (Primary Care) Vital Signs: Last Vital Signs Temp 97.3 F 01/28/25 16:16 Pulse 92 01/28/25 16:16 BP 174/102 H 01/28/25 16:16 Pulse Ox 99 01/28/25 16:16 Oxygen Delivery Method Room Air 01/28/25 16:16 BMI result Body Mass Index 44.4 Tobacco/Smoking Status: Tobacco use Status Tobacco use date assessed 01/28/25 01/28/25 16:24 Patient Tobacco Use Status Never used Tobacco 01/28/25 16:24 Tobacco use type Cigarette 01/28/25 16:24 e-Cigarette/Vaping Use Never Used 01/28/25 16:24 PHQ-9: PHQ-9 Score PHQ-9: Total score 6 01/28/25 16:48 Depression Screening Interpretation: Positive Thrive Assessment: Date of Thrive Assessment Date Thrive assessed 01/28/25 01/28/25 16:24 Currently or been in a relationship where the following occur: No concerns reported Const General: alert; No acute distress Eyes Conjunctivae: conjunctivae normal Resp Auscultation: clear to auscultation bilaterally Cardio Rate: regular rate Rhythm: regular rhythm GI Inspection: Yes normal to inspection Extrem General: Yes normal to inspection and No edema Results AMB Hemoglobin A1c AMB Hemoglobin A1c 6.0 % Last Edit by Chitra Wilburn CMA on 01/28/25 16:44 Results Reviewed Results Reviewed: Laboratory Last Values Hgb A1c (Clinic) 6.0 % (4.0-6.0) 01/28/25 16:26 Coding Level of Care Code Est Pt Level 4 (78859) Complex EM visit Add On G2211 Diagnoses Microcytosis R71.8 Hepatic steatosis K76.0 Cholelithiasis K80.20 Impaired glucose tolerance R73.02 Morbid obesity E66.01 Colon cancer screening Z12.11 Hypertension I10 Generalized anxiety disorder F41.1 Gastroesophageal reflux disease without esophagitis K21.9 Esophagitis presence: without esophagitis Hypercholesterolemia E78.00 Perimenopausal symptoms N95.1 Cervical cancer screening Z12.4 Vaginal candidiasis B37.31 Colonoscopy refused Z53.20 Trigger finger of right thumb M65.311 Additional Codes KATHY-7 Assessment Billing - KATHY-7 Assessment Tool: KATHY-7 Assessment 37529 ([id number]) PHQ-9 - 04036 - PHQ-9 Billing: Yes ([id number]) Assessment & Plan Assessment & Plan (1) Microcytosis: Code(s): R71.8 - Other abnormality of red blood cells Category: Medical Plan: Patient has some mild iron deficiency will need repeat blood test (2) Hepatic steatosis: Comment: September 2024 Code(s): K76.0 - Fatty (change of) liver, not elsewhere classified Category: Medical Plan: Low-fat diet and exercise (3) Cholelithiasis: Comment: September 2024 Code(s): K80.20 - Calculus of gallbladder without cholecystitis without obstruction Category: Medical Plan: Low-fat diet (4) Impaired glucose tolerance: Code(s): R73.02 - Impaired glucose tolerance (oral) Category: Medical Plan: Decrease the amount of carbohydrate intake, pasta, bread, rice and potatoes are all sugar and that is aside from all the sweet stuff, remember that fruits are good but they are Sweet also. (5) Morbid obesity: Code(s): E66.01 - Morbid (severe) obesity due to excess calories Category: Medical Plan: Diet and exercise (6) Colon cancer screening: Code(s): Z12.11 - Encounter for screening for malignant neoplasm of colon Category: Medical Plan: Patient is reminded about colonoscopy (7) Hypertension: Code(s): I10 - Essential (primary) hypertension Category: Medical Plan: Patient is presently on lisinopril 5 mg once a day (8) Generalized anxiety disorder: Code(s): F41.1 - Generalized anxiety disorder Category: Medical Plan: Continue with present medication on alprazolam as needed duloxetine 60 mg once a day (9) GERD (gastroesophageal reflux disease): Code(s): K21.9 - Gastro-esophageal reflux disease without esophagitis Category: Medical Qualifiers: Esophagitis presence: without esophagitis Qualified Code(s): K21.9 - Gastro-esophageal reflux disease without esophagitis (10) Hypercholesterolemia: Code(s): E78.00 - Pure hypercholesterolemia, unspecified Category: Medical Plan: Avoid the foods that causes that usually spicy foods, tomato products, juices, coffee, soda and foods that your sensitive to. After eating do not lie down, allow 3-4 hours before in lie down. And keep the head of bed above 30 degrees to avoid the acid from going up. (11) Perimenopausal symptoms: Code(s): N95.1 - Menopausal and female climacteric states Category: Medical (12) Cervical cancer screening: Code(s): Z12.4 - Encounter for screening for malignant neoplasm of cervix Category: Medical (13) Vaginal candidiasis: Code(s): B37.31 - Acute candidiasis of vulva and vagina Category: Medical (14) Colonoscopy refused: Code(s): Z53.20 - Procedure and treatment not carried out because of patient's decision for unspecified reasons Category: Medical (15) Trigger finger of right thumb: Code(s): M65.311 - Trigger thumb, right thumb Category: Medical Plan History of Present Illness The patient is a 49-year-old female presenting for follow-up management of her multiple medical conditions, including essential hypertension, hypercholesterolemia, and GERD. Adjustments to her hypertension medication were discussed as part of her management. Recent lab work highlighted concerns with cholesterol and sugar levels, while her anxiety disorder and menopausal symptoms pose additional challenges. Health Maintenance - Colonoscopy reminder as last performed in 2015. - Mammogram in July 2024. - Latest blood work in August showed no anemia but did demonstrate microcytosis, mild iron deficiency, elevated cholesterol, and elevated blood sugar. - Emphasis on a no-fat diet, exercise, and diabetes management plan towards overall health improvement. Social History - Difficulty with accessing continuity of care in mental health due to distance and practice changes. - Concerns about potential social interactions at previous workplace affecting healthcare access. - Recurrent yeast infections affecting quality of life. - Family history of diabetes, diet low in fried foods to manage genetic predisposition. Review of Systems - Musculoskeletal: Reports trigger finger on the right hand. - Psychological: Reports recent mood swings, irritability, and emotional changes. - Genitourinary: Reports recurrent vaginal discharge. - Dermatological: Reports skin burning sensation. Physical Exam Results - Labs: Elevated fasting blood sugar, slight improvement in hemoglobin A1c from 6.1% to 6.0%. - Tests: No mention of imaging or other specific tests in the conversation. Plan Adjustments to the hypertension treatment plan include the use of a lisinopril and hydrochlorothiazide combination, to which the patient will transition from her current lisinopril monotherapy. Monitoring of blood glucose levels is essential given elevated A1c levels. A low-fat and diabetic-friendly diet will be enforced alongside advice for exercise. The patient's recurrent vaginal candidiasis will be addressed with appropriate treatment and considerations of hormonal influences on her psychological state given the menopausal symptoms. Referral to a Women's [facility] facility for continued reproductive healthcare is planned. Patient was informed and verbally consented to the use of an ambient scribe for clinic note documentation during this visit. Discussion Notes I discussed with the patient the rationale for adjusting her hypertension medication regimen to a combination therapy involving lisinopril and hydrochlorothiazide and confirmed no significant sedative effects are to be expected. We reviewed her lab results, considering the slightly improved A1c levels, and emphasized the importance of continuing dietary and lifestyle adjustments for metabolic control. Recurrent anemia was noted among other present concerns. The impact of menopausal symptoms was addressed, especially in relation to her anxiety and mood disturbances, where coordination with gynecological services is essential within her follow-up plan. Patient Instructions - Start the new hypertension medication and take it twice a day as directed. - Continue with dietary modifications, emphasizing no-fat and low-sugar intake. - Exercise regularly as part of the diabetes plan. - Follow up with Women's Health for gynecological check-up and evaluation of recurrent yeast infections. - Get scheduled blood work for routine monitoring and assessment. - Monitor for any unusual symptoms and report back if necessary. - Schedule a colonoscopy given it is overdue. - Ensure future follow-up with us within two months for comprehensive health maintenance evaluation. 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 N95.1 - Menopausal and female climacteric states, Z12.4 - Encounter for screening for malignant neoplasm of cervix Medications: New tizanidine 4 mg PO BEDTIME PRN 90 tabs 0RF muscle spasticity M51.36 - Other intervertebral disc degeneration, lumbar region lisinopril-hydrochlorothiazide 10-12.5 mg 1 tab PO BID 60 tabs 3RF I10 - Essential (primary) hypertension fluconazole 150 mg PO Q3D 2 tabs 0RF 2 doses B37.31 - Acute candidiasis of vulva and vagina Discontinued lisinopril Discontinued Reason: Doctor's Order 5 mg PO DAILY 90 tabs 3RF I10 - Essential (primary) hypertension cyclobenzaprine Discontinued Reason: Doctor's Order 10 mg PO TID 30 days PRN 90 tabs 2RF muscle spasm G89.29 - Other chronic pain, M54.50 - Low back pain, unspecified
--- OUTSIDE RECORDS SUMMARY | 2025-01-28 18:56 | XMS_ITS | Clinical Summary ---
Author Organization [employer] Address [address] [place] [address] [address] [place] [address] Care Team Providers Care Spear Fisher Name Role Phone Unavailable Primary Care Provider Unavailabl e Allergies No known active allergies Medications ALPRAZolam (Xanax) 2 MG tablet TAKE 1 TABLET BY MOUTH 3 TIMES A DAY FOR 30 DAYS 3 Active cephalexin (Keflex) 500 MG capsule 3 Active clotrimazole (Lotrimin) 1 % cream APPLY TOPICALLY TWICE DAILY FOR 30 DAYS 3 Active cyclobenzaprine (Flexeril) 10 MG tablet TAKE 1 TABLET BY MOUTH 3 TIMES A DAY NEEDED FOR MUSCLE SPASM FOR 30 DAYS 3 Active DULoxetine (Cymbalta) [address] capsule Take 60 mg by mouth in the morning. 3 Active gabapentin (Neurontin) 600 MG tablet 3 Active lisinopril 5 MG tablet Take 5 mg by mouth in the morning. 3 Active nabumetone (Relafen) 500 MG tablet Take 500 mg by mouth 2 times daily. 3 Active predniSONE (Deltasone) 10 MG tablet 3 Active sertraline (Zoloft) 100 MG tablet Take 100 mg by mouth in the morning. 3 Active traMADol (Ultram) 50 MG tablet TAKE 1 TABLET ORALLY EVERY 6 TO 8 HOURS NEEDED FOR PAIN FOR 30 DAYS 3 Active triamcinolone (Kenalog) 0.5 % cream USE 1 APPLICATION TOPICALLY 2 TIMES A DAY FOR 7 DAYS 3 Active Social History Tobacco Use Types Packs/Day Years Used Date Smoking Tobacco: Never Smokeless Tobacco: Never Tobacco Cessation:Counseling Given: Not Answered Alcohol Use Standard Drinks/Week Comments Never 0 (1 standard drink = 0.6 oz pur e alcohol) Comments Unknown Sex and Gender Information Value Date Recorded Sex Assigned at Female 08/22/2022 10:17 AM EDT Legal Sex Female 10:17 AM EDT Gender Identity Female 09/08/2023 12:57 PM EST Sexual Orientation Choose not to disclose 2022 12:57 PM EST Plan of Treatment Health Maintenance Due Date Last Done Comments CT Colonography 1977 Colonoscopy 1977 Colorectal Cancer Screening 1977 Depression Screening 1977 FIT DNA/Cologuard 1977 FIT 1977 FOBT 1977 HIV Screening 1977 SDOH Screening 1977 Sigmoidoscopy 1977 Alcohol/Substance Use Screening 1989 Family Planning (PISQ) 1992 Hepatitis C Screening 1995 DTaP/Tdap/Td Vaccines (1 - Tdap) 1996 Hepatitis B Vaccines (1 of 3 - 19+ 3-dose series) 1996 Pap Smear 1998 Cervical Cancer Screening 2007 HPV/Cotest 2007 Dental Prophylaxis 08/09/2014 02/06/2014 Mammogram 2017 Dental Oral Exam 06/08/2018 12/08/2017, , 06/05/2015, Additional history exists Dental X-Ray: Full Mouth 11/17/2020 11/16/2017 COVID-19 Vaccine ( season) 2024 Influenza Vaccine (#1) 2024 Tobacco Screening 09/13/2024 09/13/2023 Dental X-Ray: Bitewings 09/14/2024 09/13/20 23, 02/02/2018, 11/16/2017, Additional history exists Zoster Vaccines (1 of 2) 2027 RSV Patients and Patients Aged 60 years or older (1 - 1-dose 75+ series) 2052 HIB Vaccines Aged Out No longer eligi ble based on patient's age to complete this topic HPV Vaccines Aged Out No longer eligi ble based on patient's age to complete this topic Hepatitis A Vaccines Aged Out No long er eligible based on patient's age to complete this topic IPV Vaccines Aged Out No longer eligi ble based on patient's age to complete this topic Meningococcal Vaccine Aged Out No ema trung eligible based on patient's age to complete this topic Pneumococcal Vaccine: Pediatrics (0 to 5 Years) and At-Risk Patients (6 to 49) Years) Aged Out No longer eligible based on patient's age to complete this topic RSV under 20 months Aged Out No longe r eligible based on patient's age to complete this topic Rotavirus Vaccines Aged Out No longer eligible based on patient's age to complete this topic Procedures Procedure Name Priority Date/Time Associated Diagnosis Comments BITEWING - SINGLE RADIOGRAPHIC IMAGE Routine 09/13/2023 1:00 PM EST PERIODIC ORAL EVALUATION - ESTABLISHED PATIENT Routine 12/08/2017 12:00 AM EST INTRAORAL - COMPLETE SERIES OF RADIOGRAPHIC IMAGES Routine 11/16/2017 12:00 AM EST PROPHYLAXIS - ADULT Routine 02/06/2014 1 2:00 AM EDT from Last 3 Months or Most Recently Relevant to Health Maintenance Insurance [employer] STAND AD[place]
== END 2025-01-28 17:14 | disposition home or self-care (01) ==
LOC: HO.HMCH 16:10
PROVIDERS: PCP Internal Medicine; Visit Provider Internal Medicine
DX: R71.8 Other abnormality of red blood cells (principal); E66.01 Morbid (severe) obesity due to excess calories; Z68.41 Body mass index [BMI] 40.0-44.9, adult; K76.0 Fatty (change of) liver, not elsewhere classified; K80.20 Calculus of gallbladder without cholecystitis without obstruction; R73.02 Impaired glucose tolerance (oral); Z12.11 Encounter for screening for malignant neoplasm of colon; I10 Essential (primary) hypertension; F41.1 Generalized anxiety disorder; K21.9 Gastro-esophageal reflux disease without esophagitis; E78.00 Pure hypercholesterolemia, unspecified; N95.1 Menopausal and female climacteric states; Z12.4 Encounter for screening for malignant neoplasm of cervix; B37.31 Acute candidiasis of vulva and vagina; Z53.20 Procedure and treatment not carried out because of patient's decision for unspecified reasons; M65.311 Trigger thumb, right thumb

== ENCOUNTER → 2025-01-28 16:10 | Outpatient (BNVA) | payer MEDICARE, MEDICAID, SELFPAY | PROVIDERS: PCP Internal Medicine; Visit Provider Internal Medicine | DX: R71.8 Other abnormality of red blood cells (principal); K76.0 Fatty (change of) liver, not elsewhere classified; K80.20 Calculus of gallbladder without cholecystitis without obstruction; R73.02 Impaired glucose tolerance (oral); E66.01 Morbid (severe) obesity due to excess calories; I10 Essential (primary) hypertension; F41.1 Generalized anxiety disorder; K21.9 Gastro-esophageal reflux disease without esophagitis; E78.00 Pure hypercholesterolemia, unspecified; N95.1 Menopausal and female climacteric states; B37.31 Acute candidiasis of vulva and vagina; M65.311 Trigger thumb, right thumb; M51.369 Other intervertebral disc degeneration, lumbar region without mention of lumbar back pain or lower extremity pain; M54.50 Low back pain, unspecified; G89.29 Other chronic pain; Z68.41 Body mass index [BMI] 40.0-44.9, adult | CPT/HCPCS: 83036; 96127; 99212 ==

== ENCOUNTER 2025-05-16 08:59 | Outpatient (AMB) | payer MEDICARE, MEDICAID, SELFPAY ==
--- OUTSIDE RECORDS SUMMARY | 2025-05-16 09:20 | XMS_ITS | Clinical Summary ---
Author Organization [employer] Address [address] [place] [address] [address] [address] Care Team Providers Care Paperboard Box Maker Name Role Phone Unavailable Primary Care Provider [...] Screening 1977 SDOH Screening 1977 Sigmoidoscopy 1977 Disability Screening 1977 Alcohol/Substance Use Screening 1989 Family Planning [...] Full Mouth 11/17/2020 11/16/2017 COVID-19 Vaccine ( - 2023- season) 2024 Tobacco Screening 09/13/2024 09/13/2023 Dental X-Ray: Bitewings 09/14/2024 09/13/20 23, 02/02/2018, 11/16/2017, Additional history exists Influenza Vaccine (#1) 2025 Zoster Vaccines (1 of 2) 2027 RSV [...] patient's age to complete this topic Meningococcal B Vaccine Aged Out No l onger eligible based on patient's age to complete this topic Meningococcal Vaccine Aged Out No ema trung eligible based on patient's age to complete this topic Pneumococcal Vaccine: Pediatrics (0 to 5 Years) and At-Risk Patients (6 to 49) Years Aged Out No longer eligible based on [...] Most Recently Relevant to Health Maintenance Insurance [facility] MEDICAID STAND ADULT * Guarantor: Debbie Saucedo Account Type Relation to Patient Date of Phone Billing Address Personal/Family Self [address] [place] [address] * Guarantor: Debbie Saucedo Account Type Relation to Patient Date of Phone Billing Address Personal/Family Self [address] [place] [address] * Guarantor: Debbie Saucedo Account Type Relation to Patient Date of Phone Billing Address Personal/Family Self [address] [place] [address]
--- NOTE | 2025-05-16 09:23 | A.OFFPC_ITS ---
Vital Signs 05/16/25 09:24 Height 5 ft 6 in Weight 268 lb 8 oz BMI 43.3 BP 132/60 Blood Pressure Location Lt brachial Position Sitting Pulse 97 Pulse Source Pulse Oximeter Temp 97.1 F Temp Source Temporal Artery Scan Pulse Oximetry (%) 97 Oxygen Delivery Method Room Air Intake Visit Reasons: igt, PERIMENOPAUSE, HTN Intake Note: Patient is here to follow up on IGT, Perimenopause, HTN. State Tested Nursing Assistant Required: No General Assembler: Not Required per policy Accompanied by: Self / Same As Patient Allergies acetaminophen (From NyQuil) Allergy (Mild, Verified 05/16/25 09:24) papl dextromethorphan (From NyQuil) Allergy (Mild, Verified 05/16/25 09:24) papl doxylamine (From NyQuil) Allergy (Mild, Verified 05/16/25 09:24) papl pseudoephedrine (From NyQuil) Allergy (Mild, Verified 05/16/25 09:24) papl codeine (CODEINE) Allergy (Unknown, Verified 05/16/25 09:24) PALPITATIONS,SHAKY Medication List - Last Reconciled 05/16/25 by Sindy Beach MD albuterol sulfate 90 mcg/actuation (Ventolin HFA) 2 puffs inhalation Q6H PRN alprazolam 2 mg PO TID 30 days [BED PADS As directed] [BEDSIDE COMMODE As directed] blood sugar diagnostic (FreeStyle Lite Strips) As directed check the QD blood-glucose meter (FreeStyle Lite Meter kit) As directed capsaicin 0.025% (Capsicum) 1 patch topical TID PRN cholecalciferol (vitamin D3) 50 mcg PO DAILY clotrimazole-betamethasone 1-0.05 % 1 appl topical BID 2 weeks crisaborole 2% (Eucrisa) 1 appl topical BID cyanocobalamin (vitamin B-12) 1,000 mcg PO DAILY duloxetine (Cymbalta) 60 mg PO DAILY 90 days ferrous sulfate 325 mg PO DAILY fluconazole 150 mg PO Q3D 2 doses fluticasone propionate 50 mcg/actuation 2 sprays intranasal DAILY gabapentin 600 mg PO TID [Heavy duty shower bench with BACK As directed] hydrocortisone 1% (Anti-Itch (hydrocortisone)) 1 appl topical TID PRN hydrocortisone 2.5% (Proctosol HC) 1 appl FL BID-QID PRN ketoconazole 2% 1 appl topical 2XW lancets (FreeStyle Lancets) As directed check BS QD lisinopril-hydrochlorothiazide 10-12.5 mg 1 tab PO BID mupirocin 2% 1 appl topical BID nabumetone 500 mg PO BID [PADS for her underwear As directed] tacrolimus 0.1% 1 appl topical BID tizanidine 4 mg PO BEDTIME PRN tramadol 50 mg PO Q6-8H PRN 30 days triamcinolone acetonide 0.025% topical triamcinolone acetonide 0.1% topical triamcinolone acetonide 0.5% 1 appl topical BID [WALKER with SEAT As directed] Tobacco use date assessed: 05/16/25 Dental Screening Dental Screen Date: 01/28/25 [facility] Medical History (Updated 01/28/25 @ 17:02 by Sindy Beach MD) Labile blood glucose LFT elevation Breast cancer screening Obesity Lumbar degenerative disc disease Dysuria GERD (gastroesophageal reflux disease) History of kidney stones Anemia Hypercholesterolemia Vitamin D deficiency Fibromyalgia Surgical History H/O gastric bypass History of left knee surgery History of tonsillectomy Family History Father Myocardial infarction CVD (cardiovascular disease) Hypertension Mother Lung cancer Diabetes Social History Housing: Apartment Alcohol intake: current Alcohol intake frequency: a few times a month Patient Tobacco Use Status: Never used Tobacco Tobacco use type: Cigarette e-Cigarette/Vaping Use: Never Used Second Hand Smoke Exposure: No service: No Current occupational status: unemployed Cognitive needs: Yes (Cane) Hearing needs: No Vision needs: No Questionnaire PHQ-9 Over the last 2 weeks, how often have you been bothered by any of the following problems? 1. Little interest or pleasure in doing things: nearly every day 2. Feeling down, depressed, or hopeless: nearly every day 3. Trouble falling or staying asleep, or sleeping too much: nearly every day 4. Feeling tired or having little energy: nearly every day 5. Poor appetite or overeating: more than half the days 6. Feeling bad about yourself - or that you are a failure or have let yourself or your family down: nearly every day 7. Trouble concentrating on things, such as reading the newspaper or watching television: nearly every day 8. Moving or speaking so slowly that other people could have noticed. Or the opposite - being so fidgety or restless that you have been moving around a lot more than usual: nearly every day 9. Thoughts that you would be better off or of hurting yourself in some way : more than half the days Total score: 25 Depression Screening Interpretation: Positive Depression Screening Done: Yes Source: Developed by Drs. Hamzah Schmid, Mely Lee, Silvio Marr and colleagues, with an educational abril from [employer]. Thrive Questionnaire Date Thrive assessed: 05/16/25 I am a: Patient What is your living situation today?: I have a place to live, but I am worried about losing it in the future Within the past 12 months, did the food you bought not last and you didn't have the money to get more?: Often true Within the past 12 months, did you worry whether your food would run out before you got money to buy more?: Sometimes True Do you have trouble paying for medicines?: I choose not to answer this question Do you have trouble getting transportation to medical appointments?: No Do you have trouble paying your heating and electricity bill?: Yes Do you have trouble taking care of your child, family member or friend?: No Do you have trouble with day-to-day activities such as bathing, preparing meals, shopping, managing finances, etc.?: Yes Are you currently unemployed and looking for a job?: No Are you interested in more education?: Yes Please select the resources that you would like help with: Housing/Retirement, Food, Utilities and Daily support Currently or been in a relationship where the following occur: No concerns reported THRIVE Score: 4 AUDIT C Alcohol Use Questionnaire (AUDIT-C) 1. How often do you have a drink containing alcohol?: Never Total Score: 0 KATHY-7 AMB Questionnaire KATHY-7 Date KATHY - 7 assessed: 05/16/25 Feeling nervous, anxious, or on edge: 3 = Nearly every day Not being able to stop or control worryin = Nearly every day Worrying too much about different things: 3 = Nearly every day Trouble relaxin = Nearly every day Being so restless that it is hard to sit still: 3 = Nearly every day Becoming easily annoyed or irritable: 3 = Nearly every day Feeling afraid as if something awful might happen: 3 = Nearly every day Total KATHY-7 score (0-4 normal; 5-9 mild; 10-14 moderate; 15-21 severe): 21 Source: Developed by Drs. Hamzah Schmid, Mely Lee, Silvio Marr and colleagues, with an educational abril from [employer]. Physical exam (Primary Care) Vital Signs: Last Vital Signs Temp 97.1 F 05/16/25 09:24 Pulse 97 05/16/25 09:24 BP 132/60 05/16/25 09:24 Pulse Ox 97 05/16/25 09:24 Oxygen Delivery Method Room Air 05/16/25 09:24 BMI result Body Mass Index 43.3 Tobacco/Smoking Status: Tobacco use Status Tobacco use date assessed 05/16/25 05/16/25 09:44 Patient Tobacco Use Status Never used Tobacco 05/16/25 09:44 Tobacco use type Cigarette 05/16/25 09:44 e-Cigarette/Vaping Use Never Used 05/16/25 09:44 PHQ-9: PHQ-9 Score PHQ-9: Total score 05/16/25 10:24 Depression Screening Interpretation: Positive Thrive Assessment: Date of Thrive Assessment Date Thrive assessed 05/16/25 05/16/25 09:44 Currently or been in a relationship where the following occur: No concerns reported Const General: alert; No acute distress Eyes Conjunctivae: conjunctivae normal Resp Auscultation: clear to auscultation bilaterally Cardio Rate: regular rate Rhythm: regular rhythm GI Inspection: Yes normal to inspection Extrem General: Yes normal to inspection and No edema Results AMB Hemoglobin A1c AMB Hemoglobin A1c 6.1 % Last Edit by ALEJANDRA Ledbetter on 05/16/25 09:51 Immunizations Boostrix Tdap 2.5 Lf unit-8 mcg-5 Lf/0.5 mL intramuscular syringe Performing Provider: Sindy Beach MD Performing Location: [facility] Administered by: Tami Reynolds CMA on 05/16/25 10:23 Dose Route Admin Location Dispensed Lot Number Expiration Date NDC Glass Unloading Equipment Tender 0.5 mL IM Left Deltoid 0.5 mL [id number] 12/13/26 [id number] [employer] Total Dispensed Waste 0.5 mL 0 % VIS Given Date VIS Provided VIS Publication Date 05/16/25 Single Vaccine 21 Eligibility Eligibility Date Funding Source Not [facility] Eligible 05/16/25 Private Results Reviewed Results Reviewed: Laboratory Last Values Hgb A1c (Clinic) 6.1 % (4.0-6.0) H 05/16/25 09:22 Coding Level of Care Code Est Pt Level 4 (86210) Complex EM visit Add On G2211 Diagnoses Impaired glucose tolerance R73.02 Hypertension I10 Hypercholesterolemia E78.00 Morbid obesity E66.01 Generalized anxiety disorder F41.1 Gastroesophageal reflux disease without esophagitis K21.9 Esophagitis presence: without esophagitis Hepatic steatosis K76.0 Colon cancer screening Z12.11 Bilateral primary osteoarthritis of knee M17.0 Assessment & Plan Assessment & Plan (1) Impaired glucose tolerance: Code(s): R73.02 - Impaired glucose tolerance (oral) Category: Medical Plan: Decrease the amount of carbohydrate intake, pasta, bread, rice and potatoes are all sugar and that is aside from all the sweet stuff, remember that fruits are good but they are Sweet also. (2) Hypertension: Code(s): I10 - Essential (primary) hypertension Category: Medical Plan: Continue with blood pressure medication. Decrease salt intake and exercise patient is on lisinopril hydrochlorothiazide 10/12.5 mg twice a day (3) Hypercholesterolemia: Code(s): E78.00 - Pure hypercholesterolemia, unspecified Category: Medical Plan: Avoid fried foods, chicken skin, eggs, butter margarine, pastries and meat. Be it pork or beef they have a lot of cholesterol will request for retesting (4) Morbid obesity: Code(s): E66.01 - Morbid (severe) obesity due to excess calories Category: Medical Plan: Continue with diet and exercise (5) Generalized anxiety disorder: Code(s): F41.1 - Generalized anxiety disorder Category: Medical Plan: Continue present medication (6) GERD (gastroesophageal reflux disease): Code(s): K21.9 - Gastro-esophageal reflux disease without esophagitis Category: Medical Qualifiers: Esophagitis presence: without esophagitis Qualified Code(s): K21.9 - Gastro-esophageal reflux disease without esophagitis Plan: Avoid the foods that causes that usually spicy foods, tomato products, juices, coffee, soda and foods that your sensitive to. After eating do not lie down, a llow 3-4 hours before in lie down. And keep the head of bed above 30 degrees to avoid the acid from going up. (7) Hepatic steatosis: Comment: September 2024 Code(s): K76.0 - Fatty (change of) liver, not elsewhere classified Category: Medical Plan: Low-fat diet and exercise (8) Colon cancer screening: Code(s): Z12.11 - Encounter for screening for malignant neoplasm of colon Category: Medical Plan: Patient is reminded about colonoscopy due to family history (9) Bilateral primary osteoarthritis of knee: Code(s): M17.0 - Bilateral primary osteoarthritis of knee Category: Medical Plan: Continue to lose the weight keep active Plan History of Present Illness The patient is a 49-year-old female presenting for a follow-up visit. The patient has a history of Gastroesophageal Reflux Disease (GERD), which has been causing significant discomfort, particularly after consuming greasy foods. She reports experiencing heartburn and nausea, which have led to a decreased appetite and weight loss. The patient has been managing her symptoms with dietary modifications and is considering starting omeprazole for better control. The patient has hypercholesterolemia, with the last recorded LDL cholesterol level being 130 mg/dL. She is advised to continue with diet and exercise to manage her cholesterol levels. The patient has a history of anxiety disorder, which has been exacerbated by stress related to her living situation. She reports episodes of elevated blood pressure during anxiety attacks and is currently taking alprazolam to manage her symptoms. The patient has hypertension and is on lisinopril and hydrochlorothiazide for management. She monitors her blood pressure regularly and notes fluctuations associated with stress. The patient has knee osteoarthritis, which contributes to her physical discomfort. The patient has impaired glucose tolerance and hepatic steatosis, which are being monitored. The patient has gallbladder stones, identified during an ultrasound performed in August 2024. She experiences symptoms of heartburn and nausea, which may be related to her gallbladder condition. The patient has a microcytic blood count without anemia, as noted in her last blood work. The patient is due for a colonoscopy due to family history, with her last test being in 2015. Health Maintenance - Colonoscopy recommended due to family history, last performed in 2015 - Mammogram is up to date - Blood pressure management with lisinopril and hydrochlorothiazide - Cholesterol management with diet and exercise - Anxiety management with alprazolam - Scheduled follow-up with pipeline dispatcher on July 22 Social History - The patient experiences significant stress due to conflicts with her neighbor, impacting her mental health. - The patient has a supportive relationship with her dog, which helps manage her anxiety. - The patient consumes a diet including vitamin water, turmeric, and beetroot to manage her blood pressure. Review of Systems - Gastrointestinal: Reports heartburn and nausea, particularly after consuming greasy foods. - Cardiovascular: Reports episodes of elevated blood pressure during anxiety attacks. - Musculoskeletal: Reports knee discomfort due to osteoarthritis. - Psychological: Reports anxiety exacerbated by stress from neighbor conflicts. Physical Exam Results - Labs: Microcytic blood count without anemia noted in last blood work. - Labs: Elevated liver enzymes noted in previous tests. - Imaging: Gallbladder stones identified in ultrasound performed in August 2024. Plan The patient will continue with dietary modifications and initiate omeprazole for management of Gastroesophageal Reflux Disease GERD). A follow-up with a pipeline dispatcher is scheduled for July 22 to further evaluate her gastrointestinal symptoms and gallbladder condition. For hypercholesterolemia, the patient is advised to maintain her current diet and exercise regimen, with a retesting of cholesterol levels planned. The patient's anxiety disorder will continue to be managed with alprazolam, and a referral for mental health support is being considered due to the exacerbation of symptoms from her living situation. Hypertension management will continue with lisinopril and hydrochlorothiazide, with regular monitoring of blood pressure, especially during periods of stress. The patient is reminded of the importance of a colonoscopy due to her family history, with plans to schedule this screening. Patient was informed and verbally consented to the use of an ambient scribe for clinic note documentation during this visit. Discussion Notes During the visit, we discussed the management of GERD with dietary changes and the initiation of omeprazole. I advised the patient to continue her current regimen for hypercholesterolemia and plan for retesting. We also addressed her anxiety disorder, emphasizing the importance of mental health support and considering a referral for therapy. Hypertension management was reviewed, with a focus on monitoring blood pressure during stress. The need for a colonoscopy was reiterated due to her family history. Patient Instructions - Continue dietary modifications and start omeprazole as prescribed. - Maintain current diet and exercise regimen for cholesterol management. - Monitor blood pressure regularly, especially during stress. - Schedule and attend follow-up with pipeline dispatcher on July 22. - Plan for a colonoscopy due to family history. - Consider mental health support and therapy referral. Orders: Orders AMB Hemoglobin A1c Today R73.02 - Impaired glucose tolerance (oral) Complete Blood Count Auto Diff 3 Months E78.00 - Pure hypercholesterolemia, unspecified Ferritin 3 Months E78.00 - Pure hypercholesterolemia, unspecified Reticulocyte Count 3 Months E78.00 - Pure hypercholesterolemia, unspecified Lipid Panel 3 Months E78.00 - Pure hypercholesterolemia, unspecified IRON PROFILE 3 Months E78.00 - Pure hypercholesterolemia, unspecified Free T4 (Free Thyroxine) 3 Months E78.00 - Pure hypercholesterolemia, unspecified Hemoglobin A1c 3 Months E78.00 - Pure hypercholesterolemia, unspecified Vitamin B12 and Folate 3 Months E78.00 - Pure hypercholesterolemia, unspecified Vitamin D 25-OH Total 3 Months E78.00 - Pure hypercholesterolemia, unspecified Uric Acid 3 Months E78.00 - Pure hypercholesterolemia, unspecified US abdomen complete Today K80.20 - Calculus of gallbladder without cholecystitis without obstruction, R79.89 - Other specified abnormal findings of blood chemistry Comprehensive Met. Panel 3 Months E78.00 - Pure hypercholesterolemia, unspecified Thyroid Stimulating Hormone 3 Months E78.00 - Pure hypercholesterolemia, unspecified UA CC w/rflx Micro + Cult 3 Months E78.00 - Pure hypercholesterolemia, unspecified, R30.0 - Dysuria TDaP Immunization Today Z23 - Encounter for immunization Referrals FINANCIAL SERVICES SPECIALIST Referral Z12.4 - Encounter for screening for malignant neoplasm of cervix Medications: New omeprazole 20 mg PO DAILY 30 caps 0RF K21.9 - Gastro-esophageal reflux disease without esophagitis
[2025-05-16 09:24] VITALS: BP 132/60; PULSE 97; TEMP 36.2; O2SAT 97; BMI 43.3
== END 2025-05-16 10:52 | disposition home or self-care (01) ==
LOC: HO.HMCH 09:00
PROVIDERS: PCP Internal Medicine; Visit Provider Internal Medicine
DX: R73.02 Impaired glucose tolerance (oral) (principal); E66.01 Morbid (severe) obesity due to excess calories; Z68.41 Body mass index [BMI] 40.0-44.9, adult; I10 Essential (primary) hypertension; E78.00 Pure hypercholesterolemia, unspecified; F41.1 Generalized anxiety disorder; K21.9 Gastro-esophageal reflux disease without esophagitis; K76.0 Fatty (change of) liver, not elsewhere classified; Z12.11 Encounter for screening for malignant neoplasm of colon; M17.0 Bilateral primary osteoarthritis of knee; Z23 Encounter for immunization

== ENCOUNTER → 2025-05-16 08:59 | Outpatient (BNVA) | payer MEDICARE, MEDICAID, SELFPAY | PROVIDERS: PCP Internal Medicine; Visit Provider Internal Medicine | DX: Z23 Encounter for immunization (principal); R73.02 Impaired glucose tolerance (oral); E78.00 Pure hypercholesterolemia, unspecified; I10 Essential (primary) hypertension; E66.01 Morbid (severe) obesity due to excess calories; F41.1 Generalized anxiety disorder; K21.9 Gastro-esophageal reflux disease without esophagitis; K76.0 Fatty (change of) liver, not elsewhere classified; M17.0 Bilateral primary osteoarthritis of knee | CPT/HCPCS: 83036; 90471; 90715; 99212 ==